=== PATIENT | female | born 1930 | race Caucasian/White ===

== ENCOUNTER 2016-06-19 12:03 | Observation (INO) | payer MEDICARE ==
[2016-06-19] MEDS ORDERED: SODIUM CHLORIDE 0.9% 500 ML IV STA (12:23)
[2016-06-19] MEDS ORDERED: MORPHINE SULFATE 4 MG/ML SYRINGE IV STA (12:23)
[2016-06-19] MEDS ORDERED: SODIUM CHLORIDE 0.9% 1,000 ML IV STA (12:23)
--- NOTE | 2016-06-19 12:43 | ED ---
General Adult HPI - General Chief complaint: Fall Stated complaint: Fall Time Seen by Provider: 06/19/16 12:05 Source: EMS, RN notes reviewed, old records reviewed Mode of arrival: EMS Limitations: no limitations - History of Present Illness Initial comments: This is a 85-year-old female ER for reevaluation. Patient is brought here after being found down. Patient recently just discharged from this institution after hospital admission. Patient is currently on single living, family came over to see patient was she was allegro. Patient states she did fall, per EMS patient was found on the ground with multiple skin abrasions and complaining of left shoulder pain and right shoulder pain left forearm pain and left rib pain. Patient denies loss of consciousness, but she is unsure of how long she was down. Denies being on blood thinners at this time. - Related Data Home Medications Medication Instructions Recorded Confirmed Calcium 1,000 mg PO HS 04/16/16 06/19/16 Atorvastatin [Lipitor] 40 mg PO HS 06/19/16 06/19/16 Fluticasone/Vilanterol [Breo 1 inhalation PO RT-DAILY 06/19/16 06/19/16 Ellipta 100-25 Mcg Inhaler] Ipratropium-Albuterol Nebulize 3 ml INHALATION RT-QID PRN 06/19/16 06/19/16 [Duoneb 0.5 mg-3 mg/3 ml Soln] Loratadine [Claritin] 10 mg PO DAILY 06/19/16 06/19/16 Sertraline HCl [Zoloft] 25 mg PO HS 06/19/16 06/19/16 Previous Rx's Medication Instructions Recorded predniSONE 5 mg PO DAILY #0 10/05/15 Aspirin 81 mg PO DAILY 30 Days 04/22/16 Carvedilol [Coreg] 3.125 mg PO BID-W/MEALS 30 Days 04/22/16 Clopidogrel [Plavix] 75 mg PO DAILY 30 Days 04/22/16 Furosemide [Lasix] 20 mg PO DAILY 30 Days 04/22/16 Lisinopril [Zestril] 2.5 mg PO DAILY 30 Days 04/22/16 Spironolactone [Aldactone] 25 mg PO DAILY 30 Days 04/22/16 Cephalexin [Keflex] 500 mg PO Q8HR #30 cap 06/19/16 Allergies Allergy/AdvReac Type Severity Reaction Status Date / Time No Known Allergies Allergy Verified 06/19/16 12:41 Review of Systems ROS Statement: Those systems with pertinent positive or pertinent negative responses have been documented in the HPI. ROS Other: All systems not noted in ROS Statement are negative. Past Medical History Past Medical History: COPD, Eye Disorder, Hypertension, Musculoskeletal Disorder , Osteoarthritis (OA) Additional Past Medical History / Comment(s): Takastsubo syndrome (broken heart syndrome) x 3, Rt leg wound from knee to ankle tx in wound center and healed- due to injuries with a fall, hairline Fx R hip, COPD , DJD, R shoulder hairline fx, UTI recent, urinary incontinence, L eye cataract, History of Any Multi-Drug Resistant Organisms: None Reported Past Surgical History: Bowel Resection, Hysterectomy, Orthopedic Surgery Additional Past Surgical History / Comment(s): L rotator cuff shoulder surgery, bowel surgery including a colectomy and colostomy with subsequent reversal and the underlying pathology was a benign lesion than malignancy, skin cancer removal recently from R upper arm and several other spots, colonoscopy-normal, debridements R leg wounds. Past Anesthesia/Blood Transfusion Reactions: Previous Problems w/ Anesthesia Additional Past Anesthesia/Blood Transfusion Reaction / Comment(s): "cannot have general anesthesia r/t heart problems" per daughter Past Psychological History: No Psychological Hx Reported Additional Psychological History / Comment(s): Pt resides at [facility]. She uses a walker if she is going outside. She no longer drives- her taiwo takes her places and assists her whenever needed. Smoking Status: Former smoker Past Alcohol Use History: Rare Additional Past Alcohol Use History / Comment(s): Pt started smoking in 1952 and quit in 2012 Past Drug Use History: None Reported - Past Family History Mother Family Medical History: Coronary Artery Disease (CAD), Diabetes Mellitus Additional Family Medical History / Comment(s): Mother at age 66 of heart problem. Father Family Medical History: Myocardial Infarction ([place]), Prostate Disorder Additional Family Medical History / Comment(s): Father at age 86 yrs. General Exam Limitations: no limitations General appearance: alert, in no apparent distress Head exam: Present: atraumatic, normocephalic, normal inspection Eye exam: Present: normal appearance, PERRL, EOMI. Absent: scleral icterus, conjunctival injection, periorbital swelling ENT exam: Present: normal exam, mucous membranes moist Neck exam: Present: normal inspection. Absent: tenderness, meningismus, lymphadenopathy Respiratory exam: Present: normal lung sounds bilaterally. Absent: respiratory distress, wheezes, rales, rhonchi, stridor Cardiovascular Exam: Present: regular rate, normal rhythm, normal heart sounds. Absent: systolic murmur, diastolic murmur, rubs, gallop, clicks GI/Abdominal exam: Present: soft, normal bowel sounds. Absent: distended, tenderness, guarding, rebound, rigid Extremities exam: Present: normal inspection, full ROM, normal capillary refill. Absent: tenderness, pedal edema, joint swelling, calf tenderness Back exam: Present: normal inspection Neurological exam: Present: alert, oriented X3, CN II-XII intact Psychiatric exam: Present: normal affect, normal mood Skin exam: Present: warm, dry, intact, normal color. Absent: rash Course Vital Signs 06/19/16 06/19/16 06/19/16 12:23 15:09 15:22 Temperature 97.1 F L Pulse Rate 97 97 97 Respiratory 17 Rate Blood Pressure 101/59 O2 Sat by Pulse 94 L Oximetry 06/19/16 15:49 Temperature 98.1 F Pulse Rate 70 Respiratory 16 Rate Blood Pressure 109/74 O2 Sat by Pulse 98 Oximetry EKG Findings - EKG Comments: EKG Findings:: EKG shows normal sinus rhythm rate of 95, HI 182, QRS 64, QTc 442 Medical Decision Making - Medical Decision Making 85 female to ER year status post fall, patient had a significant fall at home,. Sustained multiple skin tears, patient also having significant shortness of breath with cough congestion and severe COPD exacerbation - Lab Data Result diagrams: 06/19/16 13:50 06/19/16 13:35 Lab Results 06/19/16 06/19/16 06/19/16 Range/Units 13:35 13:35 13:39 WBC (3.8-10.6) k/uL RBC (3.80-5.40) m/uL Hgb (11.4-16.0) gm/dL Hct (34.0-46.0) % MCV (80.0-100.0) fL MCH (25.0-35.0) pg MCHC (31.0-37.0) g/dL RDW (11.5-15.5) % Plt Count (150-450) k/uL Neutrophils % % Lymphocytes % % Monocytes % % Eosinophils % % Basophils % % Neutrophils # (1.3-7.7) k/uL Lymphocytes # (1.0-4.8) k/uL Monocytes # (0-1.0) k/uL Eosinophils # (0-0.7) k/uL Basophils # (0-0.2) k/uL Hypochromasia Anisocytosis PT 10.5 (9.0-12.0) sec INR 1.0 (<1.1) APTT 18.1 L (22.0-30.0) sec Sodium 137 (137-145) mmol/L Potassium 4.9 (3.5-5.1) mmol/L Chloride 103 (98-107) mmol/L Carbon Dioxide 25 (22-30) mmol/L Anion Gap 9 mmol/L BUN 19 H (7-17) mg/dL Creatinine 0.93 (0.52-1.04) mg/dL Est GFR (MDRD) Af Amer >60 (>60 ml/min/1.73 sqM) Est GFR (MDRD) Non-Af 57 (>60 ml/min/1.73 sqM) Glucose 108 H (74-99) mg/dL Calcium 8.7 (8.4-10.2) mg/dL Phosphorus 3.5 (2.5-4.5) mg/dL Magnesium 1.9 (1.6-2.3) mg/dL Total Bilirubin 0.9 (0.2-1.3) mg/dL AST 44 H (14-36) U/L ALT 40 (9-52) U/L Alkaline Phosphatase 51 (38-126) U/L Total Creatine Kinase 412 H (30-135) U/L CK-MB (CK-2) 7.0 H* (0.0-2.4) ng/mL CK-MB (CK-2) Rel Index 1.7 Troponin I <0.012 (0.000-0.034) ng/mL Total Protein 5.1 L (6.3-8.2) g/dL Albumin 2.6 L (3.5-5.0) g/dL 06/19/16 Range/Units 13:50 WBC 15.1 H (3.8-10.6) k/uL RBC 2.75 L (3.80-5.40) m/uL Hgb 8.5 L D (11.4-16.0) gm/dL Hct 26.4 L (34.0-46.0) % MCV 96.0 D (80.0-100.0) fL MCH 30.8 (25.0-35.0) pg MCHC 32.1 (31.0-37.0) g/dL RDW 16.1 H (11.5-15.5) % Plt Count 391 (150-450) k/uL Neutrophils % 77 % Lymphocytes % 12 % Monocytes % 7 % Eosinophils % 3 % Basophils % 0 % Neutrophils # 11.6 H (1.3-7.7) k/uL Lymphocytes # 1.8 (1.0-4.8) k/uL Monocytes # 1.0 (0-1.0) k/uL Eosinophils # 0.4 (0-0.7) k/uL Basophils # 0.0 (0-0.2) k/uL Hypochromasia Slight Anisocytosis Slight PT (9.0-12.0) sec INR (<1.1) APTT (22.0-30.0) sec Sodium (137-145) mmol/L Potassium (3.5-5.1) mmol/L Chloride (98-107) mmol/L Carbon Dioxide (22-30) mmol/L Anion Gap mmol/L BUN (7-17) mg/dL Creatinine (0.52-1.04) mg/dL Est GFR (MDRD) Af Amer (>60 ml/min/1.73 sqM) Est GFR (MDRD) Non-Af (>60 ml/min/1.73 sqM) Glucose (74-99) mg/dL Calcium (8.4-10.2) mg/dL Phosphorus (2.5-4.5) mg/dL Magnesium (1.6-2.3) mg/dL Total Bilirubin (0.2-1.3) mg/dL AST (14-36) U/L ALT (9-52) U/L Alkaline Phosphatase (38-126) U/L Total Creatine Kinase (30-135) U/L CK-MB (CK-2) (0.0-2.4) ng/mL CK-MB (CK-2) Rel Index Troponin I (0.000-0.034) ng/mL Total Protein (6.3-8.2) g/dL Albumin (3.5-5.0) g/dL - Radiology Data Radiology results: report reviewed (Chest x-ray pelvis x-ray x-ray of bilateral shoulder elbow rest and bilateral knee are negative for traumatic injury), image reviewed Disposition Clinical Impression: Fall, Extensive tearing away of skin, COPD (chronic obstructive pulmonary disease), Acute bronchitis, Noninfected skin tear of leg, Finger abrasion Disposition: ADMITTED IP TO THIS HOSP Condition: Good Instructions: Skin Tear (ED), Fall Prevention for Older Adults (ED) Prescriptions: Cephalexin [Keflex] 500 mg PO Q8HR #30 cap Referrals: Lesia Harper III, MD [Primary Care Provider] - 1-2 days
[2016-06-19 14:04] LABS: Creatine Kinase 412 U/L (30-135)
[2016-06-19 14:15] LABS: Anisocytosis Slight; Basophils % (A) 0 %; CH 30.4; CHCM 31.8; Eosinophils # (A) 0.4 k/uL (0-0.7); Eosinophils % (A) 3 %; HCT 26.4 % (34.0-46.0); HDW 2.73; Hypochromasia Slight; Luc # (Auto) 0.25; Luc % (Auto) 2; Lymphocytes # (A) 1.8 k/uL (1.0-4.8); Lymphocytes % (A) 12 %; MCH 30.8 pg (25.0-35.0); MCHC 32.1 g/dL (31.0-37.0); Mean Platelet Volume 6.7; Monocytes % (A) 7 %; Neutrophils # (A) 11.6 k/uL (1.3-7.7); Neutrophils % (A) 77 %; RBC 2.75 m/uL (3.80-5.40); RDW 16.1 % (11.5-15.5); WBC 15.1 k/uL (3.8-10.6); WBC (Perox) 15.46
[2016-06-19 14:17] LABS: Troponin I <0.012 ng/mL (0.000-0.034)
[2016-06-19 14:18] LABS: Anion Gap 9 mmol/L; Calcium 8.7 mg/dL (8.4-10.2); Carbon Dioxide 25 mmol/L (22-30); Chloride 103 mmol/L (98-107); Glucose 108 mg/dL (74-99); Non-African American GFR(MDRD) 57 (>60 ml/min/1.73 sqM); Sodium 137 mmol/L (137-145); Total Bilirubin 0.9 mg/dL (0.2-1.3); Total Protein 5.1 g/dL (6.3-8.2)
[2016-06-19 14:20] LABS: Prothrombin Time 10.5 sec (9.0-12.0)
[2016-06-19 14:21] LABS: HGB 8.5 gm/dL (11.4-16.0)
--- NOTE | 2016-06-19 14:27 | CT ---
EXAMINATION TYPE: CT brain cspine wo con DATE OF EXAM: 06/19/2016 2:16 PM COMPARISON: 01/12/2015 HISTORY: fall today with injury CT DLP: 1382.9 mGycm Automated exposure control for dose reduction was used. TECHNIQUE: CT scan of the head and cervical spine are performed without contrast. FINDINGS: There is no acute intracranial hemorrhage, mass effect, or midline shift identified. The ventricles and sulci are consistent with moderate degenerative change.. Changes of mild chronic sinu sitis. Periventricular abnormal attenuation is suggestive of remote microvascular ischemia. Cervical spine is visualized in its entirety from C1 through upper thoracic levels and demonstrates s atisfactory alignment without evidence of acute fracture or dislocation. Prevertebral soft tissue ap pears within normal limits. The C1-C2 articulation is unremarkable. Severe degenerative disc disease C3-C7 with posterior spondylosis. Uncovertebral joint hypertrophy an d facet arthropathy at these levels with area of focal sclerosis involving C7. Bone island more likel y than malignancy. There is a 1.1 cm right thyroid nodule. Biapical pleural-based thickening and calcification noted. IMPRESSION: 1. There is no acute fracture or dislocation evident in the cervical spine. 2. No acute intracranial hemorrhage, mass effect, or midline shift is seen. 3. Severe degenerative disc disease and facet arthropathy with foraminal encroachment at virtually al l levels. Canal stenosis is suspected at C5-C6. 4. Sclerotic change to the C7 vertebral body is nonspecific consider follow-up bone scan as discussed above. 5. 1 cm right thyroid nodule. 6. Biapical pleural-based thickening. Correlate for asbestosis related disease.
[2016-06-19 14:35] LABS: Blood Urea Nitrogen 19 mg/dL (7-17); Potassium 4.9 mmol/L (3.5-5.1)
[2016-06-19 14:36] LABS: AST 44 U/L (14-36); Phosphorous 3.5 mg/dL (2.5-4.5)
[2016-06-19 14:37] LABS: ALT 40 U/L (9-52); Alkaline Phosphatase 51 U/L (38-126); Magnesium 1.9 mg/dL (1.6-2.3)
[2016-06-19 14:38] LABS: Partial Thromboplastin Time 18.1 sec (22.0-30.0)
[2016-06-19] MEDS ORDERED: IPRATROPIUM-ALBUTEROL 3 ML NEB INHALATION STA ×2 (14:53→16:38)
[2016-06-19] MEDS ORDERED: HYDROcodone/APAP 5-325MG 1 EACH TAB PO STA (15:40)
[2016-06-19] MEDS ORDERED: CEPHALEXIN 500 MG CAP PO STA (16:46)
--- NOTE | 2016-06-19 17:03 | XR ---
EXAMINATION TYPE: XR chest 1V DATE OF EXAM: 06/19/2016 4:56 PM COMPARISON: Prior chest x-ray March HISTORY: Pain, fall TECHNIQUE: Single frontal view of the chest is obtained. FINDINGS: Patient is rotated. The interstitium is increased. There is an underlying scoliosis. Posto p changes noted to the proximal left humerus. Bone mineralization is reduced which may limit sensitiv ity. No evident pneumothorax or pleural effusion. Cardiac mediastinal silhouette, pulmonary vasculari ty and starr are stable. Suspect some mixed airspace disease is present. IMPRESSION: Correlate for possible congestive heart failure, pneumonia not excluded. Additional find ings above. Follow-up is recommended.
--- NOTE | 2016-06-19 17:05 | XR ---
Bilateral shoulders HISTORY: Trauma and pain 3 views of each shoulder submitted on a total of 6 images The right shoulder is high riding. Bone mineralization is reduced which could limit sensitivity. Post op change noted to the proximal left humerus. Biapical pleural thickening is noted. Bilateral arthrop athy present, the distal acromion is downturned. IMPRESSION: No acute fracture or dislocation is evident. There may be chronic rotator cuff tear
[2016-06-19] MEDS ORDERED: HYDROcodone/APAP 5-325MG 1 EACH TAB PO PRN (17:06)
[2016-06-19] MEDS ORDERED: predniSONE 20 MG TAB PO STA (17:06)
--- NOTE | 2016-06-19 17:07 | XR ---
EXAMINATION TYPE: XR knee complete bilateral DATE OF EXAM: 06/19/2016 4:56 PM COMPARISON: NONE HISTORY: Pain FINDINGS: Diffuse osteopenia noted with narrowing of the joint spaces bilaterally and evidence of chondrocalcin osis. Vascular calcification seen. Osseous structures are intact. No acute fracture seen. IMPRESSION: 1. No acute fracture or dislocation. 2. Severe osteoarthritis bilaterally.
--- NOTE | 2016-06-19 17:07 | XR ---
EXAMINATION TYPE: XR pelvis AP view DATE OF EXAM: 06/19/2016 4:56 PM COMPARISON: NONE HISTORY: Pain The osseous structures are intact and the joint spaces are preserved. No acute fracture is seen. Vi sualized bowel gas pattern is nonspecific. Vascular calcifications arthropathy of the hip noted with diffuse osteopenia. Greater trochanter region is limited by technique. Degenerative change lower lum bar spine. IMPRESSION: 1. No acute fracture.
--- NOTE | 2016-06-19 17:07 | XR ---
Bilateral elbows HISTORY: Trauma and pain 3 views of each elbow submitted. No comparisons Suspect there may be calcification at the origins of the flexor and extensor tendons. Bone mineraliza tion is reduced, alignment is maintained. No evident joint effusion. Lucency present within the soft tissues of the left upper extremity. IMPRESSION: Correlate for possible soft tissue infection, cellulitis, abscess not excluded.
--- NOTE | 2016-06-19 17:09 | XR ---
Bilateral wrists HISTORY: Bruising, trauma and pain 4 views of each wrist are submitted on a total of 8 images Chondrocalcinosis is present. Bone mineralization is reduced which may limit sensitivity. There is re modeling at the radiocarpal joint bilaterally. IMPRESSION: Correlate for crystal deposition arthropathy. No acute fracture or dislocation is evident , follow-up as indicated.
[2016-06-19] MEDS: IPRATROPIUM-ALBUTEROL 3 ML NEB INHALATION SCH (20:01)
[2016-06-19] MEDS ORDERED: IPRATROPIUM-ALBUTEROL 3 ML NEB INHALATION PRN (22:56)
[2016-06-19] MEDS ORDERED: ZOLPIDEM 5 MG TAB PO PRN (23:11)
[2016-06-20] MEDS ORDERED: CARVEDILOL 3.125 MG TAB PO SCH (07:30)
[2016-06-20 08:04] VITALS: RESP 16
[2016-06-20 08:14] LABS: Glucose,Whole Blood 146 mg/dL (75-99)
[2016-06-20 08:36] LABS: Hemoglobin A1C 5.4 % (4.2-6.1)
[2016-06-20] MEDS: INSULIN LISPRO (humaLOG) 300 UNIT/3 ML VIAL SQ SCH ×2 (08:50→13:22)
[2016-06-20] MEDS ORDERED: predniSONE 20 MG TAB PO SCH (09:00)
[2016-06-20] MEDS: IPRATROPIUM-ALBUTEROL 3 ML NEB INHALATION SCH ×3 (09:09→15:55)
[2016-06-20 11:31] LABS: Glucose,Whole Blood 149 mg/dL (75-99)
[2016-06-20 13:45] VITALS: BMI 17.2
[2016-06-20] MEDS ORDERED: FUROSEMIDE 10 MG/ML 4 ML VIAL IV STA (14:26)
[2016-06-20 15:43] VITALS: BP 81/46; TEMP 98.6
[2016-06-20 16:01] VITALS: PULSE 84
--- NOTE | 2016-06-20 17:45 | HP ---
DATE OF ADMISSION: Patient is an 85-year-old female who came in after a fall. Patient was recently discharged from subacute rehabilitation, after which patient went home. Patient did not lose consciousness. Patient denied any shortness of breath, orthopnea or PND, although she has a bit of pulmonary edema on the chest x-ray. I will go ahead and give her a dose of Lasix. Patient denied any fever or chills. I will also increase the dose of Lasix to 40 mg daily with repeat electrolytes in 3 days and followup closely with primary care physician. Patient has multiple skin breakdowns, for which patient will need local wound care. Patient is an ideal candidate for subacute rehab, although patient finished all her rehab days. Unfortunately, because of that reason, I am not able to send her to subacute rehab. Patient denied any fever or chills. Patient denied any nausea, vomiting, abdominal pain. Patient does have leukocytosis secondary to fall and reactive, without any signs or symptoms of sepsis at this point of time. Patient had multiple imaging studies, including elbow x-ray, hand and wrist x-ray, chest x-ray, head and spinal CT, knee x-ray, pelvic x-ray, shoulder x-ray. None of these imaging studies revealed any fractures, but patient has multiple skin breakdowns. Patient has very fragile, thin and elderly skin. Patient will need good local wound care, in spite of which patient's wounds are hard to heal. To help her with the wound healing, I will go ahead and discontinue the 5 mg of prednisone that the patient is on. Patient does have congestive heart failure. Because her fall and low normal blood pressures, I will temporarily hold off on lisinopril, which can be restarted. I will also change Coreg to metoprolol sustained-release. REVIEW OF SYSTEMS: CONSTITUTIONAL: No fever, no malaise, no fatigue. HEENT: No recent visual problems or hearing problems. Denied any sore throat. CARDIOVASCULAR: No chest pain, orthopnea, PND, no palpitations, no syncope. PULMONARY: No shortness of breath, no cough, no hemoptysis. GASTROINTESTINAL: No diarrhea, no nausea, no vomiting, no abdominal pain. Normoactive bowel sounds. NEUROLOGICAL: No headaches, no weakness, no numbness. HEMATOLOGICAL: Denies any bleeding or petechiae. GENITOURINARY: Denies any burning micturition, frequency, or urgency. MUSCULOSKELETAL/RHEUMATOLOGICAL: As mentioned in HPI. ENDOCRINE: Denies any polyuria or polydipsia. The rest of the 14 point review of systems is negative. Home medications include: 1. Calcium. 2. Atorvastatin. 3. Fluticasone/Vilanterol (Breo Ellipta). 4. Ipratropium albuterol. 5. Loratadine. 6. Sertraline. 7. Prednisone. 8. Aspirin. 9. Coreg. 10. Plavix. 11. Lasix 20 mg orally daily. 12. Lisinopril 2.5 mg p.o. daily. 13. Spironolactone 25 p.o. daily. 14. Cephalexin 500 p.o. q.8 hourly. This was given by ER physician because of her extensive skin breakdowns. I will go ahead and continue cephalexin. Patient is definitely at very high risk for cellulitis, anyways. PHYSICAL EXAMINATION: VITAL SIGNS: Temperature 97.4, pulse of 88, respiratory rate of 16, blood pressure 105/52. Saturating at 98% on 2 L of oxygen by nasal cannula. GENERAL: The patient is alert and oriented x3, not in any acute distress. Well developed, well nourished. HEENT: Pupils are round and equally reacting to light. EOMI. No scleral icterus. No conjunctival pallor. Normocephalic, atraumatic. No pharyngeal erythema. No thyromegaly. CARDIOVASCULAR: S1 and S2 present. No murmurs, rubs, or gallops. PULMONARY: Chest is clear to auscultation, no wheezing or crackles. ABDOMEN: Soft, nontender, nondistended, normoactive bowel sounds. No palpable organomegaly. MUSCULOSKELETAL: No joint swelling or deformity. EXTREMITIES: No cyanosis, clubbing, or pedal edema. NEUROLOGICAL: Gross neurological examination did not reveal any focal deficits. SKIN: As mentioned above, multiple skin breakdowns. Patient does not appear to have cellulitis anywhere. Past medical history is significant for: 1. COPD. 2. Takotsubo syndrome. Her previous ejection fraction was low at around 20%. 3. Coronary artery disease. 4. Rotator cuff shoulder surgery. 5. Bowel surgery. 6. Colectomy with colostomy and reversal. SOCIAL HISTORY: Former smoker. Quit smoking in 2012. Denied any alcohol abuse or any drug abuse. FAMILY HISTORY: Mother had coronary artery disease, diabetes mellitus. Mother at age 66 because of heart problems. Father had myocardial infarction and prostate disorder. LABORATORY DATA: CBC, CMP are abnormal for elevated WBC count of 15,100, hemoglobin of 8.5. Normocytic anemia, probably anemia of chronic disease. CK is minimally elevated secondary to fall. ASSESSMENT AND PLAN: 1. Fall, multiple skin breakdowns. Patient did not have any syncopal episode. Patient had a mechanical fall. Because of the low blood pressures, modification in medications as mentioned above. 2. Congestive heart failure with minimal acute exacerbation, for which I will give her a dose of Lasix and also increase her home Lasix dose. Continue with Aldactone. Patient does have chronic systolic dysfunction. 3. Probably takotsubo syndrome as per the previous echocardiogram. LEON inhibitor will be held temporarily because of her falls and concerns about syncopal episode leading to another fall. 4. Generalized deconditioning. Because of above-mentioned reasons, we will set up home care for her. 5. Chronic obstructive pulmonary disease without any acute exacerbation. 6. Degenerative joint disease. 7. Moderate protein calorie malnutrition. Patient will be discharged today. Please refer to my depart summary for discharge medications. Patient will follow with Dr. Harper in 3 to 5 days. [facility] will follow the patient. Activity as tolerated. Cardiac diet. CHF discharge instructions will be provided. LAWANDA
[2016-06-21] MEDS ORDERED: FUROSEMIDE 20 MG TAB PO SCH (09:00)
[2016-06-21] MEDS ORDERED: SPIRONOLACTONE 25 MG TAB PO SCH (09:00)
== END 2016-06-20 16:21 | disposition home health service (06) ==
LOC: EC 12:03 → 4MS4W 17:06
PROVIDERS: ADMIT Hospitalist; ATTEND Hospitalist
DX: T14.8 Other injury of unspecified body region (principal); W19.XXXA Unspecified fall, initial encounter; J44.1 Chronic obstructive pulmonary disease with (acute) exacerbation; I50.9 Heart failure, unspecified; I25.10 Atherosclerotic heart disease of native coronary artery without angina pectoris; D72.829 Elevated white blood cell count, unspecified; E44.0 Moderate protein-calorie malnutrition; I10 Essential (primary) hypertension; I51.81 Takotsubo syndrome; M19.90 Unspecified osteoarthritis, unspecified site; Z79.82 Long term (current) use of aspirin; Z85.828 Personal history of other malignant neoplasm of skin; Z87.891 Personal history of nicotine dependence; Z79.02 Long term (current) use of antithrombotics/antiplatelets; Z79.51 Long term (current) use of inhaled steroids; Z79.52 Long term (current) use of systemic steroids; Z79.899 Other long term (current) drug therapy; M25.512 Pain in left shoulder; M25.511 Pain in right shoulder; M79.632 Pain in left forearm; Z91.81 History of falling; M17.0 Bilateral primary osteoarthritis of knee; M50.30 Other cervical disc degeneration, unspecified cervical region
CPT/HCPCS: 36415; 94640 ×4; 93005; 80053; 83036; 82550; 82553; 83735; 84100; 84484; 85025; 85610; 85730; 71010; 73562; 73110; 73030; 73080; 72170; 72125; 70450; 99285; G0378 ×2; J1940; J7512 ×2; 96374

== ENCOUNTER 2016-06-22 12:45 | Inpatient (IN) | payer MEDICARE ==
--- NOTE | 2016-06-22 14:09 | ED ---
General Adult HPI - General Chief complaint: Shortness of Breath Stated complaint: ASHLEY Time Seen by Provider: 06/22/16 13:05 Source: patient, family, EMS, RN notes reviewed, old records reviewed Mode of arrival: ambulatory Limitations: no limitations - History of Present Illness Initial comments: Chief complaint history of present illness an 85-year-old female who is here because she short of breath. And falls. Patient was in and out of hospitals last week several times. Recently discharged from nursing facility after spending 3 months there. The patient does have some minimal comes in every 2 hours check on her. She has multiple ecchymotic areas of her lower extremities multiple skin tears from previous falls. Patient also has COPD is on home O2. Denying chest pain - Related Data Home Medications Medication Instructions Recorded Confirmed Calcium 1,000 mg PO HS 04/16/16 06/22/16 Atorvastatin [Lipitor] 40 mg PO HS 06/19/16 06/22/16 Fluticasone/Vilanterol [Breo 1 puff INHALATION RT-DAILY 06/19/16 06/22/16 Ellipta 100-25 Mcg Inhaler] Ipratropium-Albuterol Nebulize 3 ml INHALATION RT-QID PRN 06/19/16 06/22/16 [Duoneb 0.5 mg-3 mg/3 ml Soln] Loratadine [Claritin] 10 mg PO DAILY 06/19/16 06/22/16 Sertraline HCl [Zoloft] 25 mg PO HS 06/19/16 06/22/16 Previous Rx's Medication Instructions Recorded Aspirin 81 mg PO DAILY 30 Days 04/22/16 Clopidogrel [Plavix] 75 mg PO DAILY 30 Days 04/22/16 Spironolactone [Aldactone] 25 mg PO DAILY 30 Days 04/22/16 Cephalexin [Keflex] 500 mg PO Q8HR #30 cap 06/20/16 Furosemide [Lasix] 40 mg PO DAILY #30 tab 06/20/16 Metoprolol Succinate [Toprol XL] 25 mg PO DAILY #30 tab 06/20/16 Allergies Allergy/AdvReac Type Severity Reaction Status Date / Time No Known Allergies Allergy Verified 06/22/16 13:42 Review of Systems ROS Statement: Those systems with pertinent positive or pertinent negative responses have been documented in the HPI. Review of systems patient is dyspneic reports that she's been distinction is discharged from hospital. Denying any chest pain or visual acuity changes. She fell apparently last week in her bathroom resulting in skin tears multiple areas of her body. Just rolling in bed with bandages on causes skin tears. Her visiting nurse sent her in because of shortness of breath. No apparent nausea vomiting or complaints of abdominal pain or chest pain. Old chart reviewed recent chart significant for history is of COPD, heart disease with a 20% ejection fraction, rotator cuff surgery, bowel surgery, CHF, colectomy with reversal of colostomy. Patient's former smoker quitting 3 years ago. Family history mother had heart disease, diabetes, father had heart attack and prostate problems. ROS Other: All systems not noted in ROS Statement are negative. Past Medical History Past Medical History: Cancer, COPD, Eye Disorder, Hypertension, Myocardial Infarction (ME), Musculoskeletal Disorder, Osteoarthritis (OA) Additional Past Medical History / Comment(s): Takotsubo syndrome (broken heart syndrome) CARDIOMYOPATHY, Rt leg wound from knee to ankle tx in wound center and healed- due to injuries with a fall, hairline Fx R hip, COPD , DJD, R shoulder hairline fx, UTI recent, urinary incontinence, L eye cataract, skin tears,incont of urine,uti,skin ca Last Myocardial Infarction Date:: 04/16/16 History of Any Multi-Drug Resistant Organisms: None Reported Past Surgical History: Bowel Resection, Heart Catheterization, Hysterectomy, Orthopedic Surgery Additional Past Surgical History / Comment(s): L rotator cuff shoulder surgery, bowel surgery including a colectomy and colostomy with subsequent reversal and the underlying pathology was a benign lesion than malignancy, skin cancer removal recently from R upper arm and several other spots, colonoscopy-normal, debridements R leg wounds. Past Anesthesia/Blood Transfusion Reactions: Previous Problems w/ Anesthesia Additional Past Anesthesia/Blood Transfusion Reaction / Comment(s): "cannot have general anesthesia r/t heart problems" per daughter Past Psychological History: No Psychological Hx Reported Additional Psychological History / Comment(s): Pt resides at [facility]. She uses a walker if she is going outside. She no longer drives- her taiwo takes her places and assists her whenever needed. Smoking Status: Former smoker Past Alcohol Use History: Rare Additional Past Alcohol Use History / Comment(s): Pt started smoking in 1952 and quit in 2012 Past Drug Use History: None Reported - Past Family History Mother Family Medical History: Coronary Artery Disease (CAD), Diabetes Mellitus Additional Family Medical History / Comment(s): Mother at age 66 of heart problem. Father Family Medical History: Myocardial Infarction (ME), Prostate Disorder Additional Family Medical History / Comment(s): Father at age 86 yrs. General Exam - General Exam Comments Initial Comments: General: The patient is awake and alert, she is cachectic, 92 pounds. Temp 97.0 pulse 92 respiratory rate 28 which slowed down after being placed in bed. Pressure 157/60. Pulse ox 99% on 4 L. Eye: Pupils are equal, round and reactive to light, extra-ocular movements are intact ; there is normal conjunctiva bilaterally. No signs of icterus. Ears, nose, mouth and throat: There are moist mucous membranes and no oral lesions. Neck: The neck is supple, there is no tenderness . Cardiovascular: The heart rate 92 no murmurs appreciated. Respiratory: Rare rales at the bases. No wheezing. But she is short of breath. History of COPD. Gastrointestinal: Soft, non-distended, non-tender abdomen without masses or organomegaly noted. There is no rebound or guarding present. No CVA tenderness. Bowel sounds are unremarkable. Back: Chronic back pain Musculoskeletal: Cachectic. Able to move upper and lower extremities. Neurological: CN II-XII intact, answering questions appropriately. No gross abnormalities. Skin: Multiple, entire limbs of ecchymosis due to bruising and falling skin tears bandages on upper or lower extremities Limitations: no limitations Course Vital Signs 06/22/16 06/22/16 06/22/16 12:52 15:02 15:42 Temperature 97.0 F L Pulse Rate 92 107 H Respiratory 28 H 18 Rate Blood Pressure 157/60 O2 Sat by Pulse 99 Oximetry EKG Findings - EKG Comments: EKG Findings:: EKG was done and reviewed at 1309 showing normal sinus rhythm nonspecific changes no acute ST elevation appreciated. Rate 93 AR interval is 170 QRS [address] Fletcher Medical Decision Making - Medical Decision Making Medical decision making patient white count 14.6 hemoglobin 7.5 hematocrit 23.8 , glucose 109, INR 1.0, potassium 4.3. Her BUN is 22 creatinine 1 GFR 53. Troponin 0.014. BNP 813 There is a 1 g drop in hemoglobin compared to last week Chest x-ray was done and reviewed by radiologist his impression is the lungs are clear and there is no pneumothorax, pleural effusion, or focal pneumonia. Hyperinflation suggest COPD. Diffuse osteopenia noted. Postsurgical changes left shoulder. Atherosclerotic change aorta. Degenerative changes of the spine compression deformities thoracic junction likely chronic. Impression no acute process. As read by Dr. valadez The case discussed Dr. gamble patient will be admitted his service. - Lab Data Result diagrams: 06/22/16 14:35 06/22/16 14:35 Lab Results 06/22/16 06/22/16 06/22/16 Range/Units 14:35 14:35 14:35 WBC 14.6 H (3.8-10.6) k/uL RBC 2.46 L (3.80-5.40) m/uL Hgb 7.5 L (11.4-16.0) gm/dL Hct 23.8 L (34.0-46.0) % MCV 96.8 (80.0-100.0) fL MCH 30.5 (25.0-35.0) pg MCHC 31.5 (31.0-37.0) g/dL RDW 16.8 H (11.5-15.5) % Plt Count 430 (150-450) k/uL Neutrophils % 83 % Lymphocytes % 9 % Monocytes % 6 % Eosinophils % 1 % Basophils % 0 % Neutrophils # 12.1 H (1.3-7.7) k/uL Lymphocytes # 1.4 (1.0-4.8) k/uL Monocytes # 0.9 (0-1.0) k/uL Eosinophils # 0.1 (0-0.7) k/uL Basophils # 0.0 (0-0.2) k/uL Hypochromasia Slight Anisocytosis Slight Macrocytosis Slight PT (9.0-12.0) sec INR (<1.1) APTT (22.0-30.0) sec Sodium 144 (137-145) mmol/L Potassium 4.3 (3.5-5.1) mmol/L Chloride 105 (98-107) mmol/L Carbon Dioxide 29 (22-30) mmol/L Anion Gap 10 mmol/L BUN 27 H (7-17) mg/dL Creatinine 1.00 (0.52-1.04) mg/dL Est GFR (MDRD) Af Amer >60 (>60 ml/min/1.73 sqM) Est GFR (MDRD) Non-Af 53 (>60 ml/min/1.73 sqM) Glucose 109 H (74-99) mg/dL Calcium 9.1 (8.4-10.2) mg/dL Magnesium 2.0 (1.6-2.3) mg/dL Total Bilirubin 0.9 (0.2-1.3) mg/dL AST 49 H (14-36) U/L ALT 43 (9-52) U/L Alkaline Phosphatase 59 (38-126) U/L Total Creatine Kinase 267 H (30-135) U/L CK-MB (CK-2) 1.7 (0.0-2.4) ng/mL CK-MB (CK-2) Rel Index 0.6 Troponin I 0.014 (0.000-0.034) ng/mL NT-Pro-B Natriuret Pep pg/mL Total Protein 5.5 L (6.3-8.2) g/dL Albumin 3.0 L (3.5-5.0) g/dL 06/22/16 06/22/16 Range/Units 14:35 14:35 WBC (3.8-10.6) k/uL RBC (3.80-5.40) m/uL Hgb (11.4-16.0) gm/dL Hct (34.0-46.0) % MCV (80.0-100.0) fL MCH (25.0-35.0) pg MCHC (31.0-37.0) g/dL RDW (11.5-15.5) % Plt Count (150-450) k/uL Neutrophils % % Lymphocytes % % Monocytes % % Eosinophils % % Basophils % % Neutrophils # (1.3-7.7) k/uL Lymphocytes # (1.0-4.8) k/uL Monocytes # (0-1.0) k/uL Eosinophils # (0-0.7) k/uL Basophils # (0-0.2) k/uL Hypochromasia Anisocytosis Macrocytosis PT 10.2 (9.0-12.0) sec INR 1.0 (<1.1) APTT 19.5 L (22.0-30.0) sec Sodium (137-145) mmol/L Potassium (3.5-5.1) mmol/L Chloride (98-107) mmol/L Carbon Dioxide (22-30) mmol/L Anion Gap mmol/L BUN (7-17) mg/dL Creatinine (0.52-1.04) mg/dL Est GFR (MDRD) Af Amer (>60 ml/min/1.73 sqM) Est GFR (MDRD) Non-Af (>60 ml/min/1.73 sqM) Glucose (74-99) mg/dL Calcium (8.4-10.2) mg/dL Magnesium (1.6-2.3) mg/dL Total Bilirubin (0.2-1.3) mg/dL AST (14-36) U/L ALT (9-52) U/L Alkaline Phosphatase (38-126) U/L Total Creatine Kinase (30-135) U/L CK-MB (CK-2) (0.0-2.4) ng/mL CK-MB (CK-2) Rel Index Troponin I (0.000-0.034) ng/mL NT-Pro-B Natriuret Pep 853 pg/mL Total Protein (6.3-8.2) g/dL Albumin (3.5-5.0) g/dL Disposition Clinical Impression: COPD exacerbation, Weakness generalized, Fall at home Disposition: ADMITTED IP TO THIS HOSP Condition: Poor
[2016-06-22 14:52] LABS: Anisocytosis Slight; Basophils % (A) 0 %; CH 30.3; CHCM 31.6; Eosinophils # (A) 0.1 k/uL (0-0.7); Eosinophils % (A) 1 %; HCT 23.8 % (34.0-46.0); HDW 2.93; HGB 7.5 gm/dL (11.4-16.0); Hypochromasia Slight; Luc # (Auto) 0.21; Luc % (Auto) 1; Lymphocytes # (A) 1.4 k/uL (1.0-4.8); Lymphocytes % (A) 9 %; MCH 30.5 pg (25.0-35.0); MCHC 31.5 g/dL (31.0-37.0); MCV 96.8 fL (80.0-100.0); Macrocytosis Slight; Mean Platelet Volume 6.6; Monocytes # (A) 0.9 k/uL (0-1.0); Monocytes % (A) 6 %; Neutrophils # (A) 12.1 k/uL (1.3-7.7); Neutrophils % (A) 83 %; RBC 2.46 m/uL (3.80-5.40); RDW 16.8 % (11.5-15.5); WBC 14.6 k/uL (3.8-10.6); WBC (Perox) 15.53
--- NOTE | 2016-06-22 14:53 | XR ---
EXAMINATION TYPE: XR chest 2V DATE OF EXAM: 06/22/2016 2:49 PM COMPARISON: 04/18/2016 HISTORY: Cough FINDINGS: The lungs are clear and there is no pneumothorax, pleural effusion, or focal pneumonia. Hyperinflat ion suggests COPD. Diffuse osteopenia noted. Postsurgical change left shoulder. Atherosclerotic cartagena e aorta. Degenerative change of the spine. Compression deformity thoracolumbar junction likely chroni c. IMPRESSION: 1. No acute process.
[2016-06-22 15:03] LABS: ALT 43 U/L (9-52); AST 49 U/L (14-36); Alkaline Phosphatase 59 U/L (38-126); Anion Gap 10 mmol/L; Blood Urea Nitrogen 27 mg/dL (7-17); Calcium 9.1 mg/dL (8.4-10.2); Carbon Dioxide 29 mmol/L (22-30); Chloride 105 mmol/L (98-107); Glucose 109 mg/dL (74-99); Non-African American GFR(MDRD) 53 (>60 ml/min/1.73 sqM); Potassium 4.3 mmol/L (3.5-5.1); Sodium 144 mmol/L (137-145); Total Bilirubin 0.9 mg/dL (0.2-1.3); Total Protein 5.5 g/dL (6.3-8.2)
[2016-06-22 15:16] LABS: Prothrombin Time 10.2 sec (9.0-12.0)
[2016-06-22 15:26] LABS: Partial Thromboplastin Time 19.5 sec (22.0-30.0)
[2016-06-22 15:31] LABS: Creatine Kinase MB 1.7 ng/mL (0.0-2.4); Troponin I 0.014 ng/mL (0.000-0.034)
[2016-06-22] MEDS ORDERED: IPRATROPIUM-ALBUTEROL 3 ML NEB INHALATION STA (15:36)
[2016-06-22] MEDS ORDERED: NALOXONE 0.4 MG/ML 1 ML VIAL IV PRN (15:58)
[2016-06-22] MEDS: IPRATROPIUM-ALBUTEROL 3 ML NEB INHALATION SCH ×3 (18:46→19:27)
[2016-06-22] MEDS: SYMBICORT 160-4.5 MCG INHALER INHALATION SCH (19:06)
[2016-06-22] MEDS ORDERED: IPRATROPIUM-ALBUTEROL 3 ML NEB INHALATION PRN (19:10)
[2016-06-22] MEDS: SERTRALINE 25 MG TAB PO SCH (20:23)
[2016-06-22] MEDS: ATORVASTATIN 40 MG TAB PO SCH (20:23)
[2016-06-23] MEDS: CEPHALEXIN 500 MG CAP PO SCH ×4 (00:27→23:11)
[2016-06-23 01:45] LABS: Appearance,Urine Cloudy (Clear); Bacteria,Urine Rare /hpf; Bilirubin,Urine Negative (Negative); Glucose,Urine (UA) Negative (Negative); Ketones,Urine Negative (Negative); Leukocyte Esterase,Urine Large (Negative); Mucus,Urine Rare /hpf; Nitrite,Urine Negative (Negative); PH, Urine 6.5 (5.0-8.0); Particle Count 40381; Protein,Urine Negative (Negative); RBC,Urine 1 /hpf (0-5); Specific Gravity,Urine 1.007 (1.001-1.035); UA Billing (MACRO vs. MICRO) MICRO; Urobilinogen,Urine <2.0 mg/dL (<2.0); WBC,Urine 86 /hpf (0-5)
[2016-06-23 03:09] LABS: Anisocytosis Slight; Basophils % (A) 0 %; CH 30.2; CHCM 30.8; Eosinophils # (A) 0.2 k/uL (0-0.7); Eosinophils % (A) 1 %; HCT 20.9 % (34.0-46.0); HDW 2.83; Hypochromasia Moderate; Luc # (Auto) 0.33; Luc % (Auto) 2; Lymphocytes # (A) 2.2 k/uL (1.0-4.8); Lymphocytes % (A) 16 %; MCHC 30.4 g/dL (31.0-37.0); MCV 98.7 fL (80.0-100.0); Macrocytosis Slight; Mean Platelet Volume 6.4; Monocytes % (A) 7 %; Neutrophils # (A) 10.1 k/uL (1.3-7.7); Neutrophils % (A) 73 %; RBC 2.12 m/uL (3.80-5.40); RDW 16.9 % (11.5-15.5); WBC 13.8 k/uL (3.8-10.6); WBC (Perox) 14.53
[2016-06-23 03:16] LABS: HGB 6.4 gm/dL (11.4-16.0)
[2016-06-23] MEDS ORDERED: SODIUM CHLORIDE 0.9% 500 ML IV ONE (03:23)
[2016-06-23] MEDS: PANTOPRAZOLE 40 MG/10 ML VIAL IV SCH (08:05)
[2016-06-23] MEDS: LORATADINE 10 MG TAB PO SCH (08:05)
[2016-06-23] MEDS: SPIRONOLACTONE 25 MG TAB PO SCH (08:07)
[2016-06-23] MEDS: SYMBICORT 160-4.5 MCG INHALER INHALATION SCH ×2 (09:01→20:48)
[2016-06-23] MEDS: IPRATROPIUM-ALBUTEROL 3 ML NEB INHALATION SCH ×4 (09:01→20:48)
[2016-06-23 10:48] VITALS: BMI 16.8
--- NOTE | 2016-06-23 16:56 | HP ---
DATE OF ADMISSION: CHIEF COMPLAINT: Shortness of breath. HISTORY OF PRESENT ILLNESS: Ms. Mcgowan is an 85-year-old female with a past medical history of hypertension, myocardial infarction, takotsubo syndrome, history of recurrent falls coming to the hospital with a chief complaint of difficulty in breathing. The patient was recently discharged from the hospital. She lives all alone at her house but will be visited by somebody every 2 hours so the patient was having difficulty in breathing and when she tried to get out of the bed she had a fall and as she has extremely fragile skin, she started to bleed from the ruptured skin lacerations and after that the patient felt significantly weak and had difficulty in breathing. Patient was very pale when she was brought into the ER. On checking her labs, her hemoglobin was found to be very low at 6.5 and so she was started on blood transfusion and admitted to the hospital for further evaluation. Patient does remember a few things, but is a poor historian so most of the history is given by her daughter who is at the bedside. Her daughter states that her skin is extremely fragile and she has skin abrasions very easily and starts to bleeding. This has been an ongoing issues and the same with her recurrent falls. The patient wishes and she does not want any resuscitation efforts. On talking to the nursing staff, the patient ran out of her days in the [facility] stay so will have to be discharged home. ON REVIEW OF SYSTEMS: CONSTITUTIONAL: No fever, chills, or rigors. RESPIRATORY: Difficulty in breathing. No cough. CARDIAC: No chest pain or palpitations. GI: No abdominal pain, nausea, vomiting, or diarrhea. HEMATOLOGICAL: Patient has a history of easy bruising. No recurrent infections. All 13 review of systems are done and negative except for the ones mentioned in the HPI. Past medical history is significant for COPD, hypertension, myocardial infarction, Takotsubo syndrome, recurrent falls, urinary incontinence, history of skin cancer and easy bruising. PAST SURGICAL HISTORY: Bowel resection, hysterectomy, left shoulder surgery, bowel surgery including colectomy and colostomy with subsequent reversal. PAST PSYCHIATRIC HISTORY: History of anxiety in the past. SOCIAL HISTORY: The patient is at [facility]. She uses a walker and needs 24 x 7 attention and she is a former smoker, quit in 2012. Family history is positive for prostrate cancer and myocardial infarction in her father. ALLERGIES: No known drug allergies. Patient's home medications: 1. Calcium 1000 mg p.o. q.h.s. 2. Aspirin 81 mg p.o. daily. 3. Plavix 75 mg p.o. daily. 4. Spironolactone 25 mg p.o. daily. 5. Zoloft 25 mg p.o. q.h.s. 6. Claritin 10 mg p.o. daily. 7. Flonase p.r.n. 8. Lasix to 40 mg p.o. daily. 9. Keflex 500 mg p.o. q.8 hours. 10. Metoprolol 25 mg p.o. daily. 11. Atorvastatin 40 mg p.o. daily. 12. Breo Ellipta 100/25 one puff 2 times daily. On examination, patient's vital signs: Temperature is 97.2, heart rate 99, respiratory rate 20, blood pressure 105/52, saturating at 98% on 3 L of nasal cannula. GENERAL EXAMINATION: Patient is a thin, fragile, old lady lying in her bed. SKIN: Patient has extremely fragile skin. She has an abrasion on the right upper arm, which is wrapped clear bandage and it has been soaking with blood. EYES: Pupils equal and reactive to light. NECK: No JVD. CARDIAC: S1, S2 heard. LUNGS: Diminished breath sounds in all lung caban. No wheezes or crackles. ABDOMEN: Soft, scaphoid. Bowel sounds positive. EXTREMITIES: Patient has hyperpigmented lesions all over her lower extremities with some bruises, but no active bleeding noticed. SUSTAINABILITY MANAGER: She is alert, awake, oriented x2. No focal deficits. SKIN: Multiple ecchymosis due to bruising and falling and skin tears with bandages on the upper and lower extremities. THE PATIENT'S LABS: White count of 13.8, hemoglobin is 6.4, platelets of 397. Sodium 144, potassium 4.3, chloride 105, bicarb 29, BUN 27, creatinine 1. UA is positive for large leukocyte esterase, but is negative for nitrites and ketones and a few WBCs. ASSESSMENT AND PLAN: 1. Shortness of breath, most likely secondary to acute anemia due to acute blood loss from her recent falls and bruising of her skin. 2. History of chronic obstructive pulmonary disease, severe chronic obstructive pulmonary disease, oxygen dependent. 3. Chronic hypoxic respiratory failure. 4. History of coronary artery disease. 5. Hypertension. 6. History of Takotsubo syndrome. 7. History of recurrent falls. 8. History of ecchymosis and easy bruising of the skin. 9. Thin with body mass index of 16. 10. Chronic debility. 11. NO CODE. PLAN: The plan is to give the patient A blood transfusion, repeat her CBC and then resume her home medications. For now will hold off her blood pressure medications as her blood pressure has been running low. As per the nursing staff, the patient showed much improvement in her mentation after receiving one unit of blood. If the patient remains stable, would anticipate discharge in the next 24 hours. The treatment care plan was discussed with her daughter who is at the bedside in detail. Overall prognosis is guarded and the patient is a NO CODE.
[2016-06-23] MEDS: CALCIUM CARBONATE 500 MG CHEWABLE PO SCH (20:00)
[2016-06-23] MEDS: ATORVASTATIN 40 MG TAB PO SCH (20:01)
[2016-06-23] MEDS: SERTRALINE 25 MG TAB PO SCH (20:01)
[2016-06-24] MEDS: FUROSEMIDE 40 MG TAB PO SCH (08:07)
[2016-06-24] MEDS: PANTOPRAZOLE 40 MG/10 ML VIAL IV SCH (08:07)
[2016-06-24] MEDS: SPIRONOLACTONE 25 MG TAB PO SCH (08:07)
[2016-06-24] MEDS: LORATADINE 10 MG TAB PO SCH (08:07)
[2016-06-24] MEDS: CEPHALEXIN 500 MG CAP PO SCH ×3 (08:07→23:50)
[2016-06-24 08:19] LABS: Anisocytosis Slight; Basophils % (A) 0 %; CH 29.2; CHCM 31.5; Eosinophils # (A) 0.5 k/uL (0-0.7); Eosinophils % (A) 4 %; HCT 22.8 % (34.0-46.0); HDW 3.04; HGB 7.3 gm/dL (11.4-16.0); Hypochromasia Slight; Luc # (Auto) 0.29; Luc % (Auto) 2; Lymphocytes # (A) 1.9 k/uL (1.0-4.8); Lymphocytes % (A) 15 %; MCHC 32.1 g/dL (31.0-37.0); Macrocytosis Slight; Mean Platelet Volume 6.2; Monocytes # (A) 0.9 k/uL (0-1.0); Monocytes % (A) 7 %; Neutrophils # (A) 9.2 k/uL (1.3-7.7); Neutrophils % (A) 72 %; RBC 2.43 m/uL (3.80-5.40); RDW 18.6 % (11.5-15.5); WBC 12.6 k/uL (3.8-10.6); WBC (Perox) 12.71
[2016-06-24 08:22] LABS: MCV 93.6 fL (80.0-100.0)
[2016-06-24] MEDS: IPRATROPIUM-ALBUTEROL 3 ML NEB INHALATION SCH ×4 (08:43→20:36)
[2016-06-24] MEDS: SYMBICORT 160-4.5 MCG INHALER INHALATION SCH ×2 (08:43→20:36)
[2016-06-24] MEDS ORDERED: ASPIRIN 81 MG CHEW PO SCH (09:00)
[2016-06-24] MEDS ORDERED: CLOPIDOGREL 75 MG TAB PO SCH (09:00)
[2016-06-24] MEDS ORDERED: METOPROLOL SUCCINATE (ER) 25 MG TAB.ER.24H PO SCH (09:00)
[2016-06-24] MEDS: IPRATROPIUM-ALBUTEROL 3 ML NEB INHALATION PRN (14:06)
[2016-06-24] MEDS: ACETAMINOPHEN TAB 325 MG TAB PO PRN (16:18)
--- NOTE | 2016-06-24 19:13 | PN ---
INTERVAL HISTORY: Ms. Mcgowan is an 85-year-old female with a past medical history of hypertension, myocardial infarction and takotsubo syndrome. History of recurrent falls, coming into the hospital with a chief complaint of difficulty in breathing. The patient was found to have low hemoglobin at 6.5. She was bleeding from the skin tears that she sustained after having a fall at her home. Patient did receive 1 unit of PRBCs yesterday and her hemoglobin is 7.8 today. As per the nursing staff report, patient has not been making much urine. Overnight she was able to get only 100 mL of output. The patient is a poor historian. She states she does not have any complaints urinating. No hematuria or dysuria. REVIEW OF SYSTEMS: CONSTITUTIONAL: No fevers, chills. RESPIRATORY: No cough. No difficulty in breathing. CARDIAC: No chest pain or palpitations. SKIN: Has some pain in her right upper arm because of the ( ). Patient's medications have been reviewed. She is on Tylenol, [place], DuoNeb, albuterol, Lipitor, Symbicort, calcium carbonate, Keflex, Lasix, Claritin, Narcan, Protonix, Zoloft. On examination, patient's vital signs temperature 98.1, heart rate 94, respiratory rate 20, blood pressure 107/53, saturating at 93% on 4 L of nasal cannula. GENERAL EXAMINATION: Elderly, thin, fragile lady, lying in bed, appears to be in no acute distress. HEAD: Atraumatic, normocephalic, has a lot of wrinkles on her face. EYES: Pupils, round, and reactive to light. NECK: No JVD. CARDIAC: S1, S2 heard. LUNGS: Diminished breath sounds in all lung. No wheezes or crackles. ABDOMEN: Soft, scaphoid. Bowel sounds positive. EXTREMITIES: Hypopigmented lesions. All of her lower extremities with some bruises and ecchymosis. No active bleeding noticed. Examination of her right upper extremity, it is bandage, no signs of active bleeding. FOURTH HAND: She is alert, awake, oriented x2. No focal deficits. Patient's labs: White count of 12.6, hemoglobin is 7.3, platelets of 318. ASSESSMENT AND PLAN: 1. Shortness of breath secondary to acute anemia due to acute blood loss from her recent falls and bruising of her skin. 2. History of chronic obstructive pulmonary disease, oxygen dependent. 3. Chronic hypoxic respiratory failure. 4. History of coronary artery disease. 5. Ecchymosis and easy bruising of the skin. 6. Hypertension. 7. History of takotsubo syndrome. 8. History of recurrent falls. 9. Acute urinary retention. 10. Thin with body mass index of 16. 11. Chronic debility. 12. NO CODE. PLAN: The patient did receive a unit of blood transfusion. Her hemoglobin is stable at 7.3. As the patient has decreased urinary output, will start the patient on IV fluids and have a Gomez catheter in place. Will continue with the rest of her medication regimen. Will have social work program coordinator and clinical case manager on board for placement issues. Overall prognosis is guarded. The patient is a NO CODE. The treatment care plan was discussed in detail with her daughters who at her bedside today.
[2016-06-24] MEDS: CALCIUM CARBONATE 500 MG CHEWABLE PO SCH (22:34)
[2016-06-24] MEDS: ATORVASTATIN 40 MG TAB PO SCH (22:36)
[2016-06-24] MEDS: SERTRALINE 25 MG TAB PO SCH (22:36)
[2016-06-24] MEDS: SODIUM CHLORIDE 0.9% 1,000 ML IV SCH (23:50)
[2016-06-25] MEDS: IPRATROPIUM-ALBUTEROL 3 ML NEB INHALATION SCH ×4 (07:29→20:30)
[2016-06-25] MEDS: SYMBICORT 160-4.5 MCG INHALER INHALATION SCH ×2 (07:29→20:30)
[2016-06-25 08:03] LABS: Anisocytosis Slight; Basophils % (A) 0 %; CH 29.9; CHCM 33.2; Eosinophils # (A) 0.6 k/uL (0-0.7); Eosinophils % (A) 5 %; HCT 21.3 % (34.0-46.0); HDW 3.21; Luc # (Auto) 0.11; Luc % (Auto) 1; Lymphocytes # (A) 1.4 k/uL (1.0-4.8); Lymphocytes % (A) 11 %; MCH 29.3 pg (25.0-35.0); MCHC 32.2 g/dL (31.0-37.0); MCV 90.9 fL (80.0-100.0); Mean Platelet Volume 8.1; Monocytes # (A) 0.8 k/uL (0-1.0); Monocytes % (A) 7 %; Neutrophils # (A) 9.5 k/uL (1.3-7.7); Neutrophils % (A) 77 %; RBC 2.34 m/uL (3.80-5.40); RDW 18.5 % (11.5-15.5); WBC 12.3 k/uL (3.8-10.6); WBC (Perox) 12.38
[2016-06-25 08:06] LABS: HGB 6.9 gm/dL (11.4-16.0)
[2016-06-25 08:55] LABS: Anion Gap 6 mmol/L; Blood Urea Nitrogen 23 mg/dL (7-17); Calcium 7.5 mg/dL (8.4-10.2); Carbon Dioxide 24 mmol/L (22-30); Chloride 108 mmol/L (98-107); Glucose 81 mg/dL (74-99); Non-African American GFR(MDRD) >60 (>60 ml/min/1.73 sqM); Potassium 4.1 mmol/L (3.5-5.1); Sodium 138 mmol/L (137-145)
[2016-06-25] MEDS: LORATADINE 10 MG TAB PO SCH (10:54)
[2016-06-25] MEDS: FUROSEMIDE 40 MG TAB PO SCH (10:54)
[2016-06-25] MEDS: SPIRONOLACTONE 25 MG TAB PO SCH (10:54)
[2016-06-25] MEDS: PANTOPRAZOLE 40 MG/10 ML VIAL IV SCH (10:54)
[2016-06-25] MEDS: CEPHALEXIN 500 MG CAP PO SCH ×3 (10:54→23:25)
[2016-06-25] MEDS: ACETAMINOPHEN TAB 325 MG TAB PO PRN (22:17)
[2016-06-25] MEDS: ATORVASTATIN 40 MG TAB PO SCH (22:18)
[2016-06-25] MEDS: CALCIUM CARBONATE 500 MG CHEWABLE PO SCH (22:18)
[2016-06-25] MEDS: SODIUM CHLORIDE 0.9% 1,000 ML IV SCH (22:18)
[2016-06-25] MEDS: SERTRALINE 25 MG TAB PO SCH (22:18)
[2016-06-26] MEDS: IPRATROPIUM-ALBUTEROL 3 ML NEB INHALATION PRN (01:14)
--- NOTE | 2016-06-26 08:06 | PN ---
Ms. Mcgowan is an 85-year-old female with a past medical history positive for HI, takotsubo syndrome, recurrent falls coming into the hospital with a chief complaint of difficulty in breathing. The patient was found to have low hemoglobin at 6.5. The patient was bleeding from the skin tears that she sustained after having a fall at her house. Patient received 2 units of PRBC until and her hemoglobin has been lingering around 10. The patient also was having urinary retention for which we have been straight cathing her. She has almost 200 to 300 mL of residual. Patient is a poor historian and she does not have any active complaints. REVIEW OF SYSTEMS: CONSTITUTIONAL: She denies having any fevers, chills. RESPIRATORY: No cough, no difficulty in breathing. CARDIAC: NO chest pain, no palpitations. The patient patient's medications have been reviewed. On examination, patient's vital signs temperature 99.7, heart rate 106, respiratory rate 20, blood pressure 92/47, saturating at 95%. GENERAL APPEARANCE: Elderly, thin, fragile lady lying in bed, appears to be in no acute distress. HEAD: Atraumatic, normocephalic. The patient has a lot of pimples on her face. Pupils round and reactive. NECK: No JVD. CARDIOVASCULAR: S1, S2 heard. LUNGS: Diminished breath sounds in all lung caban. No wheezes or crackles. ABDOMEN: Soft, scaphoid, bowel sounds positive. EXTREMITIES: The patient has hyperpigmented lesions all over her lower extremities and skin tears all over her upper extremities. The one on the right arm is bandage. No signs of active bleeding. GENERAL PRODUCTION LABORER: She is alert, awake, oriented x2. No focal deficits. Patient's labs: White count of 12.3, hemoglobin is 6.9, platelets 313. Sodium 138, potassium 4.1, chloride 108, bicarb 23, BUN 23, creatinine 0.82. ASSESSMENT AND PLAN: 1. Shortness of breath secondary to acute anemia due to blood loss from her recent falls and skin tears. 2. History of chronic obstructive pulmonary disease, oxygen dependent. 3. Chronic hypoxic respiratory failure. 4. Urinary retention. 5. History of coronary artery disease. 6. Ecchymosis and easy bruising of the skin. 7. Hypertension. 8. History of takotsubo syndrome. 9. History of recurrent falls. 10. Recent history of urinary tract infection. 11. Thin build with BMI of 16. 12. Chronic debility. 13. NO CODE. PLAN: The patient did receive 2 units of PRBCs and until now hemoglobin has been stable. She is not actively bleeding. Will continue the Gomez catheter as she has been retaining a lot of urine. Will continue with the current medication regimen. line up worker and immigration case worker on board for placement issues. As the patient ran out of her [facility] days and they are trying to find a place for her to go. Overall prognosis is guarded. Patient is a NO CODE.
[2016-06-26] MEDS: CEPHALEXIN 500 MG CAP PO SCH ×3 (08:17→23:20)
[2016-06-26] MEDS: FUROSEMIDE 40 MG TAB PO SCH (08:17)
[2016-06-26] MEDS: PANTOPRAZOLE 40 MG/10 ML VIAL IV SCH (08:17)
[2016-06-26] MEDS: LORATADINE 10 MG TAB PO SCH (08:17)
[2016-06-26] MEDS: SPIRONOLACTONE 25 MG TAB PO SCH (08:17)
[2016-06-26] MEDS: SYMBICORT 160-4.5 MCG INHALER INHALATION SCH ×2 (08:19→18:23)
[2016-06-26] MEDS: IPRATROPIUM-ALBUTEROL 3 ML NEB INHALATION SCH ×4 (08:19→18:23)
[2016-06-26 12:03] LABS: Anisocytosis Slight; Basophils % (A) 0 %; CH 30.2; CHCM 33.6; Eosinophils # (A) 0.5 k/uL (0-0.7); Eosinophils % (A) 4 %; HCT 27.2 % (34.0-46.0); HDW 3.56; Luc # (Auto) 0.13; Luc % (Auto) 1; Lymphocytes # (A) 1.2 k/uL (1.0-4.8); Lymphocytes % (A) 9 %; MCH 29.2 pg (25.0-35.0); MCHC 32.2 g/dL (31.0-37.0); MCV 90.7 fL (80.0-100.0); Mean Platelet Volume 8.5; Monocytes % (A) 8 %; Neutrophils # (A) 10.2 k/uL (1.3-7.7); Neutrophils % (A) 78 %; Poikilocytosis Slight; RDW 17.4 % (11.5-15.5); WBC (Perox) 12.94
[2016-06-26 12:04] LABS: HGB 8.7 gm/dL (11.4-16.0)
--- NOTE | 2016-06-26 14:08 | CDI ---
In responding to this query, please exercise your independent professional judgment. The [facility] Coding Staff and Clinical Documentation Specialists appreciate your assistance in clarifying documentation, maintaining compliance with coding guidelines, accurately documenting patients condition and capturing severity of illness. The fact that a question is asked does not imply that any particular answer is desired or expected. Communication forms are a method of clarifying documentation and are not made part of the Legal Health Record. Thank you in advance for your clarification. Last Revision, March 2015 Yajaira Avina [address] [place] [address] Documentation Clarification Form Date: 06/26/2016 1:41:00 PM From: Kristin Ramirez Admit Date: 06/22/2016 3:58:00 PM Patient Name: Allison Mcgowan Visit Number: [id number] Discharge Date: Dr. Maggie Lacy Cachectic has been documented in the ER evaluation. History/Risk Factors: COPD, hypertension, Takotsubo syndrome, Former smoker, Clinical Indicators: Fall at home with skin laceration and after that the patient felt significantly weak and ad difficulty in breathing. The patient was very pale. She uses a walker and need 24x7 attention. She has extremely fragile skin. Labs: Albumin 3.0, Total Protein 5.5 Current BMI: 16.8 Insufficient energy intake: She has difficulty chewing, poor appetite Weight Loss: Patient unsure of how much weight lost and over what time period. Treatment: Dietary Consult: Yes Supplements: Commercial beverage, Ensure TID Lab monitoring: Monitor weight In your professional opinion, can you please clarify if these findings signify one of the following conditions? Mild Protein Malnutrition Mild Protein-Calorie Malnutrition Moderate Protein Malnutrition Moderate Protein-Calorie Malnutrition Severe Protein Malnutrition Severe Protein-Calorie Malnutrition Malnutrition following GI surgery Malnutrition Other condition, please specify Unable to determine Please document in your progress notes and discharge summary in order to capture severity of illness and risk of mortality. Include clinical findings that support your diagnosis. FYI: Press F11 to launch patient chart. Place X here if this finding has no clinical significance, is not applicable or if you are not able to provide any additional documentation. MTDD
[2016-06-26] MEDS: SERTRALINE 25 MG TAB PO SCH (20:46)
[2016-06-26] MEDS: SODIUM CHLORIDE 0.9% 1,000 ML IV SCH (20:46)
[2016-06-26] MEDS: ATORVASTATIN 40 MG TAB PO SCH (20:46)
[2016-06-26] MEDS: CALCIUM CARBONATE 500 MG CHEWABLE PO SCH (20:46)
[2016-06-27] MEDS: CEPHALEXIN 500 MG CAP PO SCH ×3 (08:05→23:15)
[2016-06-27] MEDS: PANTOPRAZOLE 40 MG TABLET PO SCH (08:05)
[2016-06-27] MEDS: LORATADINE 10 MG TAB PO SCH (08:05)
[2016-06-27] MEDS: FUROSEMIDE 40 MG TAB PO SCH (08:05)
[2016-06-27] MEDS: SPIRONOLACTONE 25 MG TAB PO SCH (08:05)
--- NOTE | 2016-06-27 08:11 | PN ---
DATE OF SERVICE: 06/26/2016 INTERVAL HISTORY: Ms. Mcgowan is an 85-year-old female with a past medical history of positive for PR, takotsubo syndrome, recurrent falls, admitted to the hospital with the chief complaint of difficulty in breathing. Patient was also found to have low hemoglobin at 6.5. The patient has multiple skin tears due to fragile skin and she also sustained a fall at her house. Patient received 2 units of PRBC until today and her hemoglobin has been stable. Patient was having urinary retention for which a Gomez catheter has been placed and will give a trial of void without the Gomez today. Patient is a poor historian. She does not have much complaints. She states that she wants to go home. REVIEW OF SYSTEMS: CONSTITUTIONAL: No fevers, chills. RESPIRATORY: States that breathing is getting better. CARDIAC: No chest pain or palpitations. The patient's medications have been reviewed. On examination, patient's vital signs, temperature 99.5, heart rate between 90 to 110, respiratory rate 20, blood pressure 135/59, saturating at 99% on 3 L of nasal cannula. GENERAL EXAMINATION: Patient is an elderly, thin fragile lady, lying in bed, appears to be in no acute distress. HEAD: Atraumatic, normocephalic. Patient has locked pupils are round, and reactive. NECK: No JVD. CARDIOVASCULAR: S1, S2 with diminished breath sounds in all lung caban. No wheeze or crackles. ABDOMEN: Soft, nontender. Bowel sounds positive. EXTREMITIES: Patient has hyperpigmented lesions all over her lower extremities. Patient has multiple skin tears in her upper extremities, the largest one being on the right upper extremity with no significant active bleeding. LEGAL SUPPORT SPECIALIST: She is alert, awake, oriented x2, no focal deficits. PATIENT'S LABS: White count of 13, hemoglobin 8.7, platelets 324, sodium 133, potassium 4.9, chloride 108, bicarb 24, BUN 23, creatinine 0.82. ASSESSMENT AND PLAN: 1. Shortness of breath secondary to acute anemia due to gastrointestinal loss from her recent fall from skin. 2. History of chronic obstructive pulmonary disease, oxygen-dependent. 3. Chronic hypoxic respiratory failure. 4. Urinary retention. 5. History of coronary artery disease. 6. Ecchymosis and easy bruising of the skin. 7. Hypertension. 8. History of takotsubo syndrome. 9. History of recurrent falls. 10. History of protein calorie malnutrition, severe. 11. Thin build with a BMI of 16. 12. Chronic debility. 13. NO CODE. PLAN: The plan is to continue the patient with the current medication regimen. I will discontinue the Gomez catheter and see if the patient is still urinating. The ( ) straight cath. Cosmetologist Apprentice and Sales Vice President on board for placement issues as the patient ran out of usp days as per her insurance. Overall prognosis is guarded. Patient is a NO CODE and patient's family member are aware of the treatment plan.
[2016-06-27] MEDS: IPRATROPIUM-ALBUTEROL 3 ML NEB INHALATION SCH ×4 (08:16→20:46)
[2016-06-27] MEDS: SYMBICORT 160-4.5 MCG INHALER INHALATION SCH ×2 (08:16→20:46)
--- NOTE | 2016-06-27 10:51 | XR ---
EXAMINATION TYPE: XR chest 1V portable DATE OF EXAM: 06/27/2016 10:37 AM COMPARISON: 06/22/2016 HISTORY: Shortness of breath TECHNIQUE: Single frontal view of the chest is obtained. FINDINGS: Bilateral infiltrate and small effusion noted. Atherosclerotic change aorta. Postsurgical change left shoulder with diffuse osteopenia. Interstitium prominent. IMPRESSION: 1. Bilateral infiltrate and small effusion. 2. COPD with increased interstitial relative to the previous exam correlate for mild venous congestio n or interstitial pneumonitis.
[2016-06-27] MEDS ORDERED: FUROSEMIDE 10 MG/ML 4 ML VIAL IV STA (11:58)
--- NOTE | 2016-06-27 13:48 | PN ---
Patient is an 85-year-old fragile female who is admitted secondary to it was believed anemia is causing her shortness of breath and patient continues to complain of some shortness of breath because at which time I am obtaining a chest x-ray and patient's hemoglobin is 8.7 after transfusion. At this point of time, patient is very fragile, will need placement and patient appears to have some malnutrition, which is probably moderate. REVIEW OF SYSTEMS: CARDIOVASCULAR: No chest pain, no orthopnea, no PND, no palpitations. PULMONARY: As described above. GASTROINTESTINAL: No diarrhea, nausea or vomiting. No abdominal pain. Normoactive bowel sounds. NEUROLOGIC: No headaches, no weakness, no numbness. Medications were reviewed. PHYSICAL EXAMINATION: Temperature 97.8, pulse of 96, respiratory rate of 20, blood pressure is 120/72, saturating at 99% on 3 L of O2 by nasal cannula. Patient does use 2 to 3 L at home. PHYSICAL EXAMINATION: GENERAL: The patient is alert and oriented x3, not in any acute distress. Well developed, well nourished. HEENT: Pupils are round and equally reacting to light. EOMI. No scleral icterus. No conjunctival pallor. Normocephalic, atraumatic. No pharyngeal erythema. No thyromegaly. CARDIOVASCULAR: S1 and S2 present. No murmurs, rubs, or gallops. PULMONARY: Chest is clear to auscultation, no wheezing or crackles. ABDOMEN: Soft, nontender, nondistended, normoactive bowel sounds. No palpable organomegaly. MUSCULOSKELETAL: No joint swelling or deformity. EXTREMITIES: No cyanosis, clubbing, or pedal edema. NEUROLOGICAL: Gross neurological examination did not reveal any focal deficits. DERMATOLOGIC: Patient has very fragile skin, skin breakdowns in multiple areas. LABORATORY DATA: Patient continues to have leukocytosis. I am not exactly sure of why she has leukocytosis. Patient does not have any cellulitis. Patient is on Keflex empirically and prophylactically because of her multiple skin breakdowns. ASSESSMENT AND PLAN: 1. Shortness of breath secondary to anemia and due to last blood loss through the skin. Because of her fall, patient has multiple skin breakdowns and blood loss secondary to that. 2. Chronic obstructive pulmonary disease, oxygen-dependent. 3. Chronic hypercapnic respiratory failure secondary to chronic obstructive pulmonary disease without any acute exacerbation at this point of time. Because of her continued complaints of shortness of breath, I will go ahead and obtain a chest x-ray. 4. Urinary retention for which patient has a Gomez catheter. Patient will need outpatient followup with Urology. 5. Ecchymosis, bruising and skin breakdown after a fall. 6. History of takotsubo. I do not have any repeat echocardiogram. 7. Moderate severe protein calorie malnutrition with body mass index of 16. 8. Chronic debility. CODE STATUS: DO NOT RESUSCITATE. Will obtain a chest x-ray. Will keep her here today. I did get the chest x-ray results at this point of time, which is showing increased pulmonary edema. We are unable to put in another IV line. Will try to give her IV Lasix. If not, I will give her an additional dose of oral Lasix. Repeat electrolytes tomorrow.
[2016-06-27] MEDS: CALCIUM CARBONATE 500 MG CHEWABLE PO SCH (20:41)
[2016-06-27] MEDS: SERTRALINE 25 MG TAB PO SCH (20:41)
[2016-06-27] MEDS: ATORVASTATIN 40 MG TAB PO SCH (20:41)
[2016-06-27] MEDS: DOCUSATE 100 MG CAP PO PRN (21:44)
[2016-06-27] MEDS: SODIUM CHLORIDE 0.9% 1,000 ML IV SCH (23:45)
[2016-06-28] MEDS: LORATADINE 10 MG TAB PO SCH (08:10)
[2016-06-28] MEDS: SPIRONOLACTONE 25 MG TAB PO SCH (08:10)
[2016-06-28] MEDS: CEPHALEXIN 500 MG CAP PO SCH ×2 (08:10→16:29)
[2016-06-28] MEDS: PANTOPRAZOLE 40 MG TABLET PO SCH (08:10)
--- NOTE | 2016-06-28 09:04 | XR ---
EXAMINATION TYPE: XR chest 1V DATE OF EXAM: 06/28/2016 7:37 AM COMPARISON: 06/27/2016 HISTORY: Shortness of breath TECHNIQUE: Single frontal view of the chest is obtained. FINDINGS: Bilateral infiltrate and small effusion noted. Atherosclerotic change aorta. Postsurgical change left shoulder with diffuse osteopenia. Interstitium prominent. Curvature of the spine with degenerative disc disease noted. IMPRESSION: 1. Bilateral infiltrate and small effusion. 2. COPD with increased interstitial relative to the previous exam correlate for mild venous congestio n or interstitial pneumonitis.
[2016-06-28 10:40] LABS: Anion Gap 10 mmol/L; Blood Urea Nitrogen 11 mg/dL (7-17); Calcium 8.2 mg/dL (8.4-10.2); Carbon Dioxide 23 mmol/L (22-30); Chloride 103 mmol/L (98-107); Glucose 86 mg/dL (74-99); Non-African American GFR(MDRD) >60 (>60 ml/min/1.73 sqM); Potassium 4.1 mmol/L (3.5-5.1); Sodium 136 mmol/L (137-145)
[2016-06-28] MEDS: FUROSEMIDE 40 MG TAB PO SCH (11:03)
[2016-06-28] MEDS: IPRATROPIUM-ALBUTEROL 3 ML NEB INHALATION SCH ×4 (11:30→19:59)
[2016-06-28] MEDS: SYMBICORT 160-4.5 MCG INHALER INHALATION SCH ×2 (11:34→19:59)
[2016-06-28] MEDS: METOPROLOL SUCCINATE (ER) 25 MG TAB.ER.24H PO SCH (11:55)
[2016-06-28 13:59] LABS: Anisocytosis Slight; CH 29.4; CHCM 31.7; HCT 28.3 % (34.0-46.0); HDW 3.22; HGB 9.2 gm/dL (11.4-16.0); Hypochromasia Slight; MCH 30.2 pg (25.0-35.0); MCHC 32.3 g/dL (31.0-37.0); MCV 93.5 fL (80.0-100.0); Mean Platelet Volume 6.8; RBC 3.03 m/uL (3.80-5.40); RDW 16.7 % (11.5-15.5)
--- NOTE | 2016-06-28 14:29 | PN ---
Patient is an 85-year-old female admitted with shortness of breath secondary to what is believed to be anemia. Patient's shortness of breath improved and patient has pulmonary edema, which improved today. Patient does have some chronic condition changes, chronic venous congestion changes on the x-ray today. Although patient became tachycardic today, I will obtain an EKG and continue with oral Lasix and check her kidney function. REVIEW OF SYSTEMS: CARDIOVASCULAR: No chest pain, no orthopnea, no PND, no palpitations. PULMONARY: Denied any shortness of breath. No cough or hemoptysis. GASTROINTESTINAL: No diarrhea, nausea or vomiting. No abdominal pain. Normoactive bowel sounds. NEUROLOGIC: No headaches, no weakness, no numbness. Medications are reviewed. PHYSICAL EXAMINATION: Temperature 97.6, pulse of 112, respiratory rate of 16, blood pressure 99/51, saturating at 99% on room air. CARDIOVASCULAR: S1 and S2 present. Patient is tachycardic. I believe is sinus tachycardia. No rubs, or gallops are appreciated. Did not appreciate any JVD at this point of time. No pedal edema. GENERAL: The patient is alert and oriented x3, not in any acute distress. Well developed, well nourished. HEENT: Pupils are round and equally reacting to light. EOMI. No scleral icterus. No conjunctival pallor. Normocephalic, atraumatic. No pharyngeal erythema. No thyromegaly. PULMONARY: Chest is clear to auscultation, no wheezing or crackles. ABDOMEN: Soft, nontender, nondistended, normoactive bowel sounds. No palpable organomegaly. MUSCULOSKELETAL: No joint swelling or deformity. EXTREMITIES: No cyanosis, clubbing, or pedal edema. NEUROLOGICAL: Gross neurological examination did not reveal any focal deficits. SKIN: No rashes. LABORATORY DATA: Basic metabolic profile essentially within normal limits. ASSESSMENT AND PLAN: 1. Shortness of breath secondary to anemia. Patient does have acute blood loss from the skin tears. 2. Chronic obstructive pulmonary disease, oxygen dependent, not in acute exacerbation. 3. Chronic hypercapnic respiratory failure secondary to chronic obstructive pulmonary disease , patient is not in acute exacerbation. 4. Congestive heart failure, systolic dysfunction from takotsubo in the past. I do not have a repeat echocardiogram after that and patient improved with IV Lasix. 5. Tachycardia, will obtain an EKG. 6. Moderate to severe protein calorie malnutrition. 7. Chronic debility. If we are able to control her heart rate, patient will be discharged tomorrow and patient appears to be euvolemic fairly for me. Patient appears to be on metoprolol XL, which is being held on this admission, probably that is contributing to her reflex tachycardia.
[2016-06-28] MEDS: SERTRALINE 25 MG TAB PO SCH (21:00)
[2016-06-28] MEDS: ATORVASTATIN 40 MG TAB PO SCH (21:00)
[2016-06-28] MEDS: CALCIUM CARBONATE 500 MG CHEWABLE PO SCH (21:01)
[2016-06-28] MEDS: SODIUM CHLORIDE 0.9% 1,000 ML IV SCH (23:45)
[2016-06-29] MEDS: CEPHALEXIN 500 MG CAP PO SCH ×4 (00:19→23:43)
--- NOTE | 2016-06-29 02:56 | CT ---
EXAMINATION TYPE: CT brain wo con DATE OF EXAM: 06/29/2016 2:45 AM COMPARISON: 06/19/2016 HISTORY: fall, hit head CT DLP: 1162.80 mGycm Automated exposure control for dose reduction was used. FINDINGS: There is diffuse cerebral atrophy. There is extensive hypodensity in the periventricular white matter . There is no mass effect nor midline shift. There is mild mucosal thickening in the sphenoid sinus o n the left side. The calvarium is intact. There is no evidence of intracranial hemorrhage. IMPRESSION: Cerebral atrophy and extensive chronic small vessel ischemia. No acute intracranial abnormality. No c hange. Mild left-sided sphenoid sinusitis.
--- NOTE | 2016-06-29 02:57 | XR ---
EXAMINATION TYPE: XR elbow limited LT DATE OF EXAM: 06/29/2016 2:51 AM COMPARISON: NONE HISTORY: Elbow pain TECHNIQUE: 2 views FINDINGS: I see no fracture nor dislocation. Joint spaces are normal. There is some soft tissue swell ing around the posterior elbow joint. IMPRESSION: Soft tissue swelling. No fracture seen.
[2016-06-29] MEDS: IPRATROPIUM-ALBUTEROL 3 ML NEB INHALATION SCH ×4 (08:09→19:05)
[2016-06-29] MEDS: SYMBICORT 160-4.5 MCG INHALER INHALATION SCH ×2 (08:20→19:05)
[2016-06-29] MEDS: LORATADINE 10 MG TAB PO SCH (08:55)
[2016-06-29] MEDS: METOPROLOL SUCCINATE (ER) 25 MG TAB.ER.24H PO SCH (08:55)
[2016-06-29] MEDS: SPIRONOLACTONE 25 MG TAB PO SCH (08:56)
[2016-06-29] MEDS: PANTOPRAZOLE 40 MG TABLET PO SCH (08:56)
[2016-06-29] MEDS: FUROSEMIDE 40 MG TAB PO SCH (08:56)
[2016-06-29 08:59] LABS: Anion Gap 9 mmol/L; Blood Urea Nitrogen 14 mg/dL (7-17); Calcium 8.5 mg/dL (8.4-10.2); Carbon Dioxide 24 mmol/L (22-30); Chloride 101 mmol/L (98-107); Glucose 99 mg/dL (74-99); Non-African American GFR(MDRD) >60 (>60 ml/min/1.73 sqM); Potassium 3.7 mmol/L (3.5-5.1); Sodium 134 mmol/L (137-145)
[2016-06-29] MEDS: HYDROcodone/APAP 5-325MG 1 EACH TAB PO PRN (11:13)
--- NOTE | 2016-06-29 12:19 | CDI ---
In responding to this query, please exercise your independent professional judgment. The [facility] Coding Staff and Clinical Documentation Specialists appreciate your assistance in clarifying documentation, maintaining compliance with coding guidelines, accurately documenting patients condition and capturing severity of illness. The fact that a question is asked does not imply that any particular answer is desired or expected. Communication forms are a method of clarifying documentation and are not made part of the Legal Health Record. Thank you in advance for your clarification. Last Revision, July [address] [facility] [place] [address] Documentation Clarification Form Date: 06/29/2016 11:47:00 AM From: Kristin Ramirez Admit Date: 06/22/2016 3:58:00 PM Patient Name: Allison Mcgowan Visit Number: [id number] Discharge Date: Dr. Maggie Lacy CHF is documented in the progress note on 06/28/16. History/Risk Factors: COPD O2 dependent, Hypertension, Takotsubo syndrome, Clinical Indicators: Admit with shortness of breath secondary to what is believed to be anemia. the patient has pulmonary edema. Lungs: Chest is clear to auscultation, no wheezing or crackles VS/Pulse OX: 94/45 107 22 97.3 95 % 2/L NC BNP: 853 Chest X Ray: 06/28/16: Bilateral infiltrate and small effusion, COPD with increased interstitial relative to the previous exam correlate for mild venous congestive or interstitial pneumonitis. Treatment: IV Lasix x1 (continue PO daily) Albuterol DuoNeb's In your professional opinion, can you please further clarify the acuity of the Systolic CHF if known? Acute Chronic Acute on Chronic Unable to determine Other, please specify If known, please specify if Heart Failure is due to: Hypertension Rheumatic Fever Please document in your progress notes and discharge summary in order to capture severity of illness and risk of mortality. Include clinical findings that support your diagnosis. FYI: Press F11 to launch patient chart. Place X here if this finding has no clinical significance, is not applicable or if you are not able to provide any additional documentation. MTDD
--- NOTE | 2016-06-29 15:14 | PN ---
Patient is an 85-year-old who came in with complaints of shortness of breath which was believed secondary to anemia, but the patient has a component of CHF exacerbation as well, which improved. Patient's blood pressure remains low. Patient was tachycardic, which improved with beta isma at this point of time. Patient had a fall yesterday because of confusion related to hospitalization related to delirium. Patient's prognosis is extremely poor. Patient has had ( ) patient is awaiting disposition to subacute rehabilitation. Patient is actually on the euvolemic to hypovolemic side, because of which I will back off on the Lasix to 40 mg orally daily. REVIEW OF SYSTEMS: CARDIOVASCULAR: No chest pain, no orthopnea, no PND, no palpitations. PULMONARY: Denied any shortness of breath. No cough or hemoptysis. GASTROINTESTINAL: No diarrhea, nausea or vomiting. No abdominal pain. Normoactive bowel sounds. NEUROLOGIC: No headaches, no weakness, no numbness. MUSCULOSKELETAL: Patient had a fall with some skin breakdowns again. Medications were reviewed. PHYSICAL EXAMINATION: VITAL SIGNS: Temperature 97.3, pulse of 96, respiratory rate of 22. Blood pressure is 94/45. Saturating at 95% on 2 L of oxygen by nasal cannula. GENERAL: Patient is a very thin built, frail female. Alert and oriented times around 2 to 3, which is her baseline. HEENT: Pupils are round and equally reacting to light. EOMI. No scleral icterus. No conjunctival pallor. Normocephalic, atraumatic. No pharyngeal erythema. No thyromegaly. CARDIOVASCULAR: S1 and S2 present. Minimal tachycardic, I believe sinus tachycardia. PULMONARY: Chest is clear to auscultation, no wheezing or crackles. ABDOMEN: Soft, nontender, nondistended, normoactive bowel sounds. No palpable organomegaly. MUSCULOSKELETAL: No joint swelling or deformity. EXTREMITIES: No cyanosis, clubbing, or pedal edema. NEUROLOGICAL: Gross neurological examination did not reveal any focal deficits. DERMATOLOGIC: No significant change compared to yesterday. LABORATORY DATA: Basic metabolic profile is abnormal for mildly low sodium of 134 due to intravascular volume depletion. ASSESSMENT AND PLAN: 1. Shortness of breath secondary to anemia, which resolved. 2. Congestive heart failure, chronic systolic dysfunction; ejection fraction is unknown at this point of time. Patient has history of takotsubo with acute exacerbation during this hospitalization, which is better now. Patient is actually on the hypovolemic side at this time. 3. Chronic obstructive pulmonary disease, oxygen-dependent, not in acute exacerbation. 4. Chronic hypercapnic respiratory failure secondary to chronic obstructive pulmonary disease. 5. Moderate to severe protein-calorie malnutrition. 6. Chronic debility. 7. Tachycardia due to mild intravascular volume depletion. 8. Multiple falls. 9. Moderate dementia. PLAN: Patient will be discharged tomorrow to subacute rehabilitation. Patient is definitely at high risk for readmission.
[2016-06-29] MEDS: SERTRALINE 25 MG TAB PO SCH (20:15)
[2016-06-29] MEDS: ATORVASTATIN 40 MG TAB PO SCH (20:15)
[2016-06-29] MEDS: CALCIUM CARBONATE 500 MG CHEWABLE PO SCH (20:15)
[2016-06-29] MEDS: SODIUM CHLORIDE 0.9% 1,000 ML IV SCH (23:44)
[2016-06-30 07:49] LABS: Anisocytosis Slight; CH 28.9; CHCM 30.5; HDW 3.16; HGB 8.8 gm/dL (11.4-16.0); Hypochromasia Marked; MCHC 30.4 g/dL (31.0-37.0); MCV 95.5 fL (80.0-100.0); Mean Platelet Volume 6.2; RBC 3.03 m/uL (3.80-5.40); RDW 16.2 % (11.5-15.5); WBC 8.7 k/uL (3.8-10.6)
[2016-06-30 08:02] LABS: Anion Gap 8 mmol/L; Blood Urea Nitrogen 14 mg/dL (7-17); Calcium 8.3 mg/dL (8.4-10.2); Carbon Dioxide 25 mmol/L (22-30); Chloride 102 mmol/L (98-107); Glucose 85 mg/dL (74-99); Non-African American GFR(MDRD) >60 (>60 ml/min/1.73 sqM); Potassium 3.9 mmol/L (3.5-5.1); Sodium 135 mmol/L (137-145)
[2016-06-30] MEDS: CEPHALEXIN 500 MG CAP PO SCH ×3 (08:30→23:32)
[2016-06-30] MEDS: SYMBICORT 160-4.5 MCG INHALER INHALATION SCH ×2 (08:36→20:44)
[2016-06-30] MEDS: IPRATROPIUM-ALBUTEROL 3 ML NEB INHALATION SCH ×4 (08:36→20:45)
[2016-06-30] MEDS: HYDROcodone/APAP 5-325MG 1 EACH TAB PO PRN (10:07)
[2016-06-30] MEDS: METOPROLOL SUCCINATE (ER) 25 MG TAB.ER.24H PO SCH (10:08)
[2016-06-30] MEDS: FUROSEMIDE 40 MG TAB PO SCH (10:08)
[2016-06-30] MEDS: PANTOPRAZOLE 40 MG TABLET PO SCH (10:08)
[2016-06-30] MEDS: LORATADINE 10 MG TAB PO SCH (10:09)
[2016-06-30] MEDS: CALCIUM CARBONATE 500 MG CHEWABLE PO SCH (20:22)
[2016-06-30] MEDS: ATORVASTATIN 40 MG TAB PO SCH (20:22)
[2016-06-30] MEDS: SERTRALINE 25 MG TAB PO SCH (20:22)
[2016-06-30] MEDS: SODIUM CHLORIDE 0.9% 1,000 ML IV SCH (20:23)
--- NOTE | 2016-06-30 22:13 | DS ---
DATE OF ADMISSION: 06/22/2016 DATE OF DISCHARGE: Patient is an 85-year-old came in with complaints of shortness of breath believed to be secondary to anemia. Patient was also treated for congestive heart failure, chronic systolic dysfunction with acute exacerbation. Patient is clinically doing well and I believe patient can be discharged today although patient is high risk for readmission. Patient we are unable to place her in extended care facility. Patient is more appropriate for correction than an extended-care facility. Family wanted to take her with 24/7 care in an AF home, although I do not believe that is 100% appropriate disposition. We have only limited choices here. Patient has acute blood loss anemia from falls and skin breakdown. Patient is on oxygen at this point of time. Patient was seen and examined on the day of discharge. Vitals are stable. PHYSICAL EXAMINATION: GENERAL: The patient is alert and oriented x3, not in any acute distress. Well developed, well nourished. HEENT: Pupils are round and equally reacting to light. EOMI. No scleral icterus. No conjunctival pallor. Normocephalic, atraumatic. No pharyngeal erythema. No thyromegaly. CARDIOVASCULAR: S1 and S2 present. No murmurs, rubs, or gallops. PULMONARY: Chest is clear to auscultation, no wheezing or crackles. ABDOMEN: Soft, nontender, nondistended, normoactive bowel sounds. No palpable organomegaly. MUSCULOSKELETAL: No joint swelling or deformity. EXTREMITIES: No cyanosis, clubbing, or pedal edema. NEUROLOGICAL: Gross neurological examination did not reveal any focal deficits. Dermatologic: As described in HPI . REVIEW OF SYSTEMS: CARDIOVASCULAR: No chest pain, no orthopnea, no PND, no palpitations. PULMONARY: Denied any shortness of breath. No cough or hemoptysis. GASTROINTESTINAL: No diarrhea, nausea or vomiting. No abdominal pain. Normoactive bowel sounds. NEUROLOGIC: No headaches, no weakness, no numbness. ASSESSMENT AND PLAN: 1. Shortness of breath secondary to anemia, which is again secondary to acute blood loss anemia from skin breakdown. 2. Congestive heart failure, chronic systolic dysfunction with acute exacerbation. 3. Chronic obstructive pulmonary disease oxygen-dependent without any acute exacerbation. 4. Acute chronic hypercapnic respiratory failure secondary to chronic obstructive pulmonary disease. 5. Moderate to severe protein calorie malnutrition. 6. Chronic debility. 7. Multiple falls. 8. Moderate dementia. Patient will need physical therapy at home. Patient will follow with Dr. Jonna Harper in 3 to 7 days. Please refer to my depart summary for further details of discharge medications. Activity as tolerated. Cardiac diet. CHF discharge instructions will be provided. Spent greater than 35 minutes in total discharge process.
[2016-07-01] MEDS: IPRATROPIUM-ALBUTEROL 3 ML NEB INHALATION PRN (00:19)
[2016-07-01] MEDS: IPRATROPIUM-ALBUTEROL 3 ML NEB INHALATION SCH ×4 (07:56→20:53)
[2016-07-01] MEDS: SYMBICORT 160-4.5 MCG INHALER INHALATION SCH ×2 (07:56→20:53)
[2016-07-01] MEDS: CEPHALEXIN 500 MG CAP PO SCH ×2 (08:46→17:12)
[2016-07-01] MEDS: PANTOPRAZOLE 40 MG TABLET PO SCH (08:46)
[2016-07-01] MEDS: METOPROLOL SUCCINATE (ER) 25 MG TAB.ER.24H PO SCH (08:47)
[2016-07-01] MEDS: FUROSEMIDE 40 MG TAB PO SCH (08:47)
[2016-07-01] MEDS: LORATADINE 10 MG TAB PO SCH (08:47)
[2016-07-01] MEDS: DOCUSATE 100 MG CAP PO PRN (10:06)
--- NOTE | 2016-07-01 17:16 | PN ---
Patient is an 85-year-old came in with complaints of shortness of breath believed to be secondary to anemia. Patient was also treated for congestive heart failure, chronic systolic dysfunction with acute exacerbation. Patient is clinically doing well and I believe patient can be discharged today although patient is high risk for readmission. Patient we are unable to place her in extended care facility. Patient is more appropriate for halfway than an extended-care facility. Family wanted to take her with 24/7 care in an AF home, although I do not believe that is 100% appropriate disposition. We have only limited choices here. Patient has acute blood loss anemia from falls and skin breakdown. Patient is on oxygen at this point of time. REVIEW OF SYSTEMS: CARDIOVASCULAR: No chest pain, no orthopnea, no PND, no palpitations. PULMONARY: Denied any shortness of breath. No cough or hemoptysis. GASTROINTESTINAL: No diarrhea, nausea or vomiting. No abdominal pain. Normoactive bowel sounds. NEUROLOGIC: No headaches, no weakness, no numbness. Medications were reviewed. PHYSICAL EXAMINATION: Temperature 97.8, pulse of 99, respiratory rate of 16, blood pressure 99/52, saturating at 98% on 2 L of O2 by nasal cannula. GENERAL: The patient is alert and oriented x3, not in any acute distress. Well developed, well nourished. HEENT: Pupils are round and equally reacting to light. EOMI. No scleral icterus. No conjunctival pallor. Normocephalic, atraumatic. No pharyngeal erythema. No thyromegaly. CARDIOVASCULAR: S1 and S2 present. No murmurs, rubs, or gallops. PULMONARY: Chest is clear to auscultation, no wheezing or crackles. ABDOMEN: Soft, nontender, nondistended, normoactive bowel sounds. No palpable organomegaly. MUSCULOSKELETAL: No joint swelling or deformity. EXTREMITIES: No cyanosis, clubbing, or pedal edema. NEUROLOGICAL: Gross neurological examination did not reveal any focal deficits. Dermatologic: As described in HPI . LABORATORY DATA: CBC, CMP, no significant abnormality. ASSESSMENT AND PLAN: 1. Shortness of breath secondary to anemia, which is again secondary to acute blood loss anemia from skin breakdown. 2. Congestive heart failure, chronic systolic dysfunction with acute exacerbation. 3. Chronic obstructive pulmonary disease oxygen-dependent without any acute exacerbation. 4. Acute chronic hypercapnic respiratory failure secondary to chronic obstructive pulmonary disease. 5. Moderate to severe protein calorie malnutrition. 6. Chronic debility. 7. Multiple falls. PLAN: Continue with present medications. Possibility of discharge tomorrow to subacute rehabilitation.
[2016-07-01] MEDS: SERTRALINE 25 MG TAB PO SCH (22:08)
[2016-07-01] MEDS: ATORVASTATIN 40 MG TAB PO SCH (22:08)
[2016-07-01] MEDS: CALCIUM CARBONATE 500 MG CHEWABLE PO SCH (22:08)
[2016-07-01] MEDS: SODIUM CHLORIDE 0.9% 1,000 ML IV SCH (22:09)
[2016-07-02] MEDS: CEPHALEXIN 500 MG CAP PO SCH ×2 (00:17→08:12)
[2016-07-02 08:07] VITALS: BP 129/55; RESP 19; TEMP 98
[2016-07-02] MEDS: SYMBICORT 160-4.5 MCG INHALER INHALATION SCH (08:10)
[2016-07-02] MEDS: IPRATROPIUM-ALBUTEROL 3 ML NEB INHALATION SCH ×2 (08:10→11:58)
[2016-07-02] MEDS: METOPROLOL SUCCINATE (ER) 25 MG TAB.ER.24H PO SCH (08:12)
[2016-07-02] MEDS: FUROSEMIDE 40 MG TAB PO SCH (08:12)
[2016-07-02] MEDS: LORATADINE 10 MG TAB PO SCH (08:12)
[2016-07-02] MEDS: PANTOPRAZOLE 40 MG TABLET PO SCH (08:12)
[2016-07-02 12:00] VITALS: PULSE 96
--- NOTE | 2016-07-03 10:15 | DS ---
DATE OF ADMISSION: 06/22/2016 DATE OF DISCHARGE: 07/02/2016 Patient is an 85-year-old female admitted with shortness of breath. Patient was discharged a couple of days ago. Patient is awaiting discharge to go to subacute rehabilitation, although her insurance [facility] did not approve her for subacute rehab. The patient is more appropriate for subacute rehab and the patient is high risk for readmission if she goes home. Although unfortunately, nothing much can be done about it as the patient and family cannot pay out of pocket to the rehabilitation because of which patient is being discharged home with home care. Patient apparently has 10/12 care. The patient was seen and examined as patient was not discharged a couple days ago. I did see and evaluate today as well. Patient's vitals are stable. PHYSICAL EXAM: No significant change compared to a couple of days ago. Please refer to my discharge summary from a couple of days ago for further details of discharge. There is no significant change in the last 2 days.
== END 2016-07-02 13:55 | DRG 811 ==
LOC: EC 12:45 → 4MS4W 15:58
PROVIDERS: ADMIT Internal Medicine; ATTEND Internal Medicine
PROC: 30230N1 Transfusion of Nonautologous Red Blood Cells into Peripheral Vein, Open Approach (ICD-10-PCS; principal; 2016-06-23)
DX: D62 Acute posthemorrhagic anemia (principal); E43 Unspecified severe protein-calorie malnutrition; J96.11 Chronic respiratory failure with hypoxia; J96.12 Chronic respiratory failure with hypercapnia; I42.9 Cardiomyopathy, unspecified; I50.22 Chronic systolic (congestive) heart failure; F03.90 Unspecified dementia, unspecified severity, without behavioral disturbance, psychotic disturbance, mood disturbance, and anxiety; E86.1 Hypovolemia; I10 Essential (primary) hypertension; I25.10 Atherosclerotic heart disease of native coronary artery without angina pectoris; I25.2 Old myocardial infarction; F41.9 Anxiety disorder, unspecified; M19.90 Unspecified osteoarthritis, unspecified site; R33.9 Retention of urine, unspecified; R29.6 Repeated falls; Z99.81 Dependence on supplemental oxygen; Z87.891 Personal history of nicotine dependence; Z85.828 Personal history of other malignant neoplasm of skin; Z66 Do not resuscitate; Z68.1 Body mass index [BMI] 19.9 or less, adult; Z79.82 Long term (current) use of aspirin; Z79.02 Long term (current) use of antithrombotics/antiplatelets; Z79.899 Other long term (current) drug therapy
CPT/HCPCS: 36415; 70450; 71010; 71020; 72125; 72170; 80048; 80053; 81001; 82550; 82553; 83036; 83605; 83735; 83880; 84100; 84484; 85025; 85027; 85610; 85730; 86850; 86900; 86901; 86920; 87040; 87502; 93005; 94640; 94760; 99285

== ENCOUNTER 2017-09-04 12:57 | Inpatient (IN) | payer MEDICARE ==
[2017-09-04] MEDS ORDERED: SODIUM CHLORIDE 0.9% 1,000 ML IV ONE (14:27)
[2017-09-04] MEDS ORDERED: SODIUM CHLORIDE 0.9% 500 ML IV ONE (14:27)
[2017-09-04 14:54] LABS: Appearance,Urine Cloudy (Clear); Bacteria,Urine Few /hpf; Bilirubin,Urine Negative (Negative); Blood,Urine Trace (Negative); Color,Urine Light Yellow; Glucose,Urine (UA) Negative (Negative); Ketones,Urine Negative (Negative); Leukocyte Esterase,Urine Large (Negative); Nitrite,Urine Negative (Negative); Protein,Urine Trace (Negative); RBC,Urine 5 /hpf (0-5); Specific Gravity,Urine 1.012 (1.001-1.035); Squamous Epithelial Cell,Urine 2 /hpf (0-4); Urobilinogen,Urine <2.0 mg/dL (<2.0); WBC,Urine >182 /hpf (0-5)
[2017-09-04 15:03] LABS: Basophils % (A) 0 %; Eosinophils # (A) 0.2 k/uL (0-0.7); Eosinophils % (A) 1 %; HCT 24.8 % (34.0-46.0); Hypochromasia Marked; Lymphocytes # (A) 1.9 k/uL (1.0-4.8); Lymphocytes % (A) 14 %; MCH 20.9 pg (25.0-35.0); MCHC 27.9 g/dL (31.0-37.0); MCV 74.8 fL (80.0-100.0); Mean Platelet Volume 6.6; Microcytosis Slight; Monocytes # (A) 0.9 k/uL (0-1.0); Monocytes % (A) 6 %; Neutrophils # (A) 10.6 k/uL (1.3-7.7); Neutrophils % (A) 76 %; Platelet Count 588 k/uL (150-450); Poikilocytosis Slight; RBC 3.31 m/uL (3.80-5.40); RDW 15.8 % (11.5-15.5)
[2017-09-04 15:07] LABS: HGB 6.9 gm/dL (11.4-16.0)
--- NOTE | 2017-09-04 15:07 | XR ---
EXAMINATION TYPE: XR chest 2V DATE OF EXAM: 09/04/2017 COMPARISON: Prior chest 05/11/2017 HISTORY: Altered mental status and shortness of breath TECHNIQUE: Frontal and lateral views of the chest are obtained. FINDINGS: There is no focal air space opacity, pleural effusion, or pneumothorax seen. The cardiac silhouette size is stable, accentuation in the appearance may be due to rotation, spinal curvature. P rominent lung volumes are again noted. The aorta is dense. There is increased retrosternal airspace. There is improvement in visualization of the posterior costophrenic angles compared to prior exam. Po stop changes noted to the proximal left humerus. Patient is rotated. Interstitium is prominent. The o sseous structures are intact. IMPRESSION: Improvement in aeration. Additional findings above.
[2017-09-04 15:13] LABS: Albumin 3.2 g/dL (3.5-5.0); Calcium 9.7 mg/dL (8.4-10.2); Potassium 5.1 mmol/L (3.5-5.1); Total Bilirubin 0.4 mg/dL (0.2-1.3); Total Protein 5.9 g/dL (6.3-8.2)
[2017-09-04 15:24] LABS: Partial Thromboplastin Time 19.2 sec (22.0-30.0)
[2017-09-04 15:38] LABS: Creatine Kinase MB 1.3 ng/mL (0.0-2.4); Troponin I 0.019 ng/mL (0.000-0.034)
[2017-09-04] MEDS ORDERED: cefTRIAXone IN SWFI 1,000 MG/10 ML SYRINGE IVP STA (15:39)
--- NOTE | 2017-09-04 15:53 | ED ---
Altered Mental Status HPI - General Chief Complaint: Altered Mental Status Stated Complaint: med reaction-shaky & altered Time Seen by Provider: 09/04/17 14:09 Source: patient, family Mode of arrival: wheelchair Limitations: altered mental status - History of Present Illness Initial Comments: This 86-year-old white female presents with daughter with the complaint of some increased confusion and imbalance over the last several days. She apparently started a medication of megestrol by Dr. Cotton a bout a week ago and the daughter thinks that the symptoms may be related to this. She stopped the medication yesterday and the patient seems to be somewhat improved. She apparently had a fever a couple of days ago as well. She does have a history of urinary tract infections but denies any current urinary symptomatology. She has had a slight cough but no difficulty in breathing or chest pain. She denies any abdominal pain. The daughter states that the confusion is significantly resolved at this point. She ambulates with a walker today. She does complain of some chronic weakness and fatigue. She denies any blood in her stool or black tarry stools. She does have a history of anemia per old records but she is unsure what type of anemia she has. No other complaints or modifying factors. - Related Data Home Medications Medication Instructions Recorded Confirmed Calcium 1,000 mg PO HS 04/16/16 05/07/17 Atorvastatin [Lipitor] 40 mg PO HS 06/19/16 05/07/17 Ipratropium-Albuterol Nebulize 3 ml INHALATION RT-QID PRN 06/19/16 05/07/17 [Duoneb 0.5 mg-3 mg/3 ml Soln] Loratadine [Claritin] 10 mg PO DAILY 06/19/16 05/07/17 Sertraline HCl [Zoloft] 25 mg PO HS 06/19/16 05/07/17 Budesonide/Formoterol Fumarate 2 puff INHALATION RT-BID 05/07/17 05/07/17 [Symbicort 160-4.5 Mcg Inhaler] Furosemide [Lasix] 20 mg PO DAILY 05/07/17 05/07/17 Montelukast [Singulair] 10 mg PO HS 05/07/17 05/07/17 predniSONE 5 mg PO DAILY 05/07/17 05/07/17 Previous Rx's Medication Instructions Recorded Aspirin 81 mg PO DAILY 30 Days chew 04/22/16 Clopidogrel [Plavix] 75 mg PO DAILY 30 Days tab 04/22/16 Metoprolol Succinate [Toprol XL] 25 mg PO DAILY #30 tab 06/20/16 Ranitidine HCl [Zantac] 150 mg PO BID #60 tab 06/30/16 Cefuroxime Axetil [Ceftin] 500 mg PO BID 10 Days #20 tab 05/12/17 Allergies Allergy/AdvReac Type Severity Reaction Status Date / Time No Known Allergies Allergy Verified 09/04/17 13:40 Review of Systems ROS Statement: Those systems with pertinent positive or pertinent negative responses have been documented in the HPI. ROS Other: All systems not noted in ROS Statement are negative. Past Medical History Past Medical History: Cancer, COPD, Hypertension, Myocardial Infarction (RI), Musculoskeletal Disorder, Osteoarthritis (OA), Respiratory Disorder Additional Past Medical History / Comment(s): Takotsubo syndrome (broken heart syndrome) CARDIOMYOPATHY, home O2 at 3L/NC ATC, Rt leg wound from knee to ankle tx in wound center and healed- due to injuries with a fall, anemia r/t skin breakdown, hairline Fx R hip, DJD, R shoulder hairline fx-healed but ROM less, incont of urine,uti, skin ca, skin tears, bruising/falls Last Myocardial Infarction Date:: 04/16/16 History of Any Multi-Drug Resistant Organisms: None Reported Past Surgical History: Heart Catheterization, Hysterectomy, Orthopedic Surgery Additional Past Surgical History / Comment(s): L rotator cuff shoulder surgery, colonoscopy, skin cancer removals, colonoscopy-normal, debridements R leg wounds , L cataract removal with lens implants. Past Anesthesia/Blood Transfusion Reactions: Previous Problems w/ Anesthesia Additional Past Anesthesia/Blood Transfusion Reaction / Comment(s): "cannot have general anesthesia r/t heart problems" per daughter in past medical hx Past Psychological History: No Psychological Hx Reported Smoking Status: Former smoker - Past Family History Mother Family Medical History: Coronary Artery Disease (CAD), Diabetes Mellitus Additional Family Medical History / Comment(s): Mother at age 66 of heart problem. Father Family Medical History: Myocardial Infarction (RI), Prostate Disorder Additional Family Medical History / Comment(s): Father at age 86 yrs. General Exam - General Exam Comments Initial Comments: GENERAL: The patient is well nourished and well hydrated. VITAL SIGNS: Heart rate, blood pressure, respiratory rate reviewed as recorded in nurse's notes. EYES: Pupils are round and reactive. Extraocular movements are intact. No conjunctival / lid redness or swelling. ENT: No external evidence of injury, swelling, or ecchymosis. Airway is patent. Throat is clear. NECK: Nontender. No swelling or evidence of injury. No subcutaneous emphysema. Trachea is midline. No thyroid mass. HEART: Regular rate and rhythm. Good peripheral pulses. LUNGS/CHEST: Breath sounds clear and equal bilaterally. No rales, rhonchi, or wheezes. No ecchymosis, subcutaneous emphysema, or tenderness. ABDOMEN: Abdomen soft without tenderness. No palpable masses or organomegaly. No peritoneal signs. No abdominal wall swelling or ecchymosis. EXTREMITIES: No extremity tenderness. Normal muscle tone and function. No thoracolumbar tenderness. NEUROLOGIC: Sensation is grossly intact. Cranial nerve exam reveals face is symmetrical, tongue is midline, speech is clear. SKIN: No abrasions or ecchymosis is noted. No induration or masses noted. PSYCHIATRIC: Alert and in no distress. She is not completely oriented. Appropriate behavior and judgment. Limitations: altered mental status Course Vital Signs 09/04/17 09/04/17 13:36 14:05 Temperature 98.6 F Pulse Rate 93 Respiratory 24 20 Rate Blood Pressure 129/58 O2 Sat by Pulse 100 Oximetry Medical Decision Making - Medical Decision Making The patient was seen and examined. All diagnostics were reviewed. The EKG shows a normal sinus rhythm at a rate of 92. There is multiple PVCs noted. There is no ST elevation identified. There is a ME interval of 170, QRS duration of 66, and the QTc interval 445. The chest x-ray does show signs of COPD but no acute processes. The laboratory shows a significantly decreased hemoglobin of 6.9 but it does appear that she does have chronic anemia with last hemoglobin being 8.1. She also has an elevation of her white blood cell count. The urinalysis does show significant evidence of urinary tract infection. It is felt as though her symptoms likely are related to the urinary tract infection. The megesterol may have been playing a role as well. Nevertheless, it is felt as though she benefit from admission to the hospital with further IV antibiotics. The case is discussed with Dr. Tapia and he is agreeable to admission. He is agreeable with the antibiotics and would like one unit of packed red blood cells transfused and Dr. Cotton to consult. - Lab Data Result diagrams: 09/04/17 14:46 09/04/17 14:46 Lab Results 09/04/17 09/04/17 09/04/17 Range/Units 14:30 14:46 14:46 WBC 14.0 H (3.8-10.6) k/uL RBC 3.31 L (3.80-5.40) m/uL Hgb 6.9 L* (11.4-16.0) gm/dL Hct 24.8 L (34.0-46.0) % MCV 74.8 L (80.0-100.0) fL MCH 20.9 L (25.0-35.0) pg MCHC 27.9 L (31.0-37.0) g/dL RDW 15.8 H (11.5-15.5) % Plt Count 588 H (150-450) k/uL Neutrophils % 76 % Lymphocytes % 14 % Monocytes % 6 % Eosinophils % 1 % Basophils % 0 % Neutrophils # 10.6 H (1.3-7.7) k/uL Lymphocytes # 1.9 (1.0-4.8) k/uL Monocytes # 0.9 (0-1.0) k/uL Eosinophils # 0.2 (0-0.7) k/uL Basophils # 0.0 (0-0.2) k/uL Hypochromasia Marked Poikilocytosis Slight Microcytosis Slight PT (9.0-12.0) sec INR (<1.2) APTT (22.0-30.0) sec Sodium (137-145) mmol/L Potassium (3.5-5.1) mmol/L Chloride (98-107) mmol/L Carbon Dioxide (22-30) mmol/L Anion Gap mmol/L BUN (7-17) mg/dL Creatinine (0.52-1.04) mg/dL Est GFR (CKD-EPI)AfAm (>60 ml/min/1.73 sqM) Est GFR (CKD-EPI)NonAf (>60 ml/min/1.73 sqM) Glucose (74-99) mg/dL Calcium (8.4-10.2) mg/dL Total Bilirubin (0.2-1.3) mg/dL AST (14-36) U/L ALT (9-52) U/L Alkaline Phosphatase (38-126) U/L Ammonia (<30) umol/L Total Creatine Kinase 55 (30-135) U/L CK-MB (CK-2) 1.3 (0.0-2.4) ng/mL CK-MB (CK-2) Rel Index 2.4 Troponin I 0.019 (0.000-0.034) ng/mL Total Protein (6.3-8.2) g/dL Albumin (3.5-5.0) g/dL Urine Color Light Yellow Urine Appearance Cloudy H (Clear) Urine pH 7.0 (5.0-8.0) Ur Specific [place] 1.012 (1.001-1.035) Urine Protein Trace H (Negative) Urine Glucose (UA) Negative (Negative) Urine Ketones Negative (Negative) Urine Blood Trace H (Negative) Urine Nitrite Negative (Negative) Urine Bilirubin Negative (Negative) Urine Urobilinogen <2.0 (<2.0) mg/dL Ur Leukocyte Esterase Large H (Negative) Urine RBC 5 (0-5) /hpf Urine WBC >182 H (0-5) /hpf Urine WBC Clumps Many H (None) /hpf Ur Squamous Epith Cells 2 (0-4) /hpf Urine Bacteria Few H (None) /hpf 09/04/17 09/04/17 09/04/17 Range/Units 14:46 14:46 14:46 WBC (3.8-10.6) k/uL RBC (3.80-5.40) m/uL Hgb (11.4-16.0) gm/dL Hct (34.0-46.0) % MCV (80.0-100.0) fL MCH (25.0-35.0) pg MCHC (31.0-37.0) g/dL RDW (11.5-15.5) % Plt Count (150-450) k/uL Neutrophils % % Lymphocytes % % Monocytes % % Eosinophils % % Basophils % % Neutrophils # (1.3-7.7) k/uL Lymphocytes # (1.0-4.8) k/uL Monocytes # (0-1.0) k/uL Eosinophils # (0-0.7) k/uL Basophils # (0-0.2) k/uL Hypochromasia Poikilocytosis Microcytosis PT 10.0 (9.0-12.0) sec INR 1.0 (<1.2) APTT 19.2 L (22.0-30.0) sec Sodium 145 (137-145) mmol/L Potassium 5.1 (3.5-5.1) mmol/L Chloride 108 H (98-107) mmol/L Carbon Dioxide 26 (22-30) mmol/L Anion Gap 11 mmol/L BUN 31 H (7-17) mg/dL Creatinine 1.16 H (0.52-1.04) mg/dL Est GFR (CKD-EPI)AfAm 49 (>60 ml/min/1.73 sqM) Est GFR (CKD-EPI)NonAf 43 (>60 ml/min/1.73 sqM) Glucose 84 (74-99) mg/dL Calcium 9.7 (8.4-10.2) mg/dL Total Bilirubin 0.4 (0.2-1.3) mg/dL AST 22 (14-36) U/L ALT 26 (9-52) U/L Alkaline Phosphatase 72 (38-126) U/L Ammonia <9 (<30) umol/L Total Creatine Kinase (30-135) U/L CK-MB (CK-2) (0.0-2.4) ng/mL CK-MB (CK-2) Rel Index Troponin I (0.000-0.034) ng/mL Total Protein 5.9 L (6.3-8.2) g/dL Albumin 3.2 L (3.5-5.0) g/dL Urine Color Urine Appearance (Clear) Urine pH (5.0-8.0) Ur Specific [place] (1.001-1.035) Urine Protein (Negative) Urine Glucose (UA) (Negative) Urine Ketones (Negative) Urine Blood (Negative) Urine Nitrite (Negative) Urine Bilirubin (Negative) Urine Urobilinogen (<2.0) mg/dL Ur Leukocyte Esterase (Negative) Urine RBC (0-5) /hpf Urine WBC (0-5) /hpf Urine WBC Clumps (None) /hpf Ur Squamous Epith Cells (0-4) /hpf Urine Bacteria (None) /hpf Disposition Clinical Impression: Anemia, Change in mental status, UTI (urinary tract infection), Weakness generalized, Leukocytosis, Renal insufficiency Disposition: ADMITTED IP TO THIS HOSP Condition: Fair Is patient prescribed a controlled substance at discharge?: No Referrals: Shadia Cotton MD [Primary Care Provider] - 1-2 days Time of Disposition: 16:03 Decision Date: 09/04/17 Decision Time: 16:03
[2017-09-04] MEDS ORDERED: ACETAMINOPHEN TAB 325 MG TAB PO PRN (16:07)
[2017-09-04] MEDS ORDERED: NALOXONE 0.4 MG/ML 1 ML VIAL IV PRN (16:07)
[2017-09-04] MEDS ORDERED: ONDANSETRON 4 MG/2 ML VIAL IVP PRN (16:07)
[2017-09-04] MEDS ORDERED: HYDROcodone/APAP 5-325MG 1 EACH TAB PO PRN (16:07)
[2017-09-04] MEDS ORDERED: IPRATROPIUM-ALBUTEROL 3 ML NEB INHALATION STA (16:51)
[2017-09-04] MEDS: IPRATROPIUM-ALBUTEROL 3 ML NEB INHALATION SCH (20:34)
--- NOTE | 2017-09-04 22:00 | HP ---
HISTORY AND PHYSICAL CHIEF COMPLAINTS: Change in mental status and some shakiness. HISTORY OF PRESENT ILLNESS: This 86-year-old woman with a past medical history of multiple medical problems including COPD, history of hypertension, myocardial infarction, DJD, history of respiratory distress, recurrent UTIs, history of cardiomyopathy, being followed by Dr. Cotton in the outpatient setting was recently evaluated by Dr. Cotton. The lungs were doing fine and the patient was started on Megace. Secondary to that, the family noted some change in mental status and the patient taken to [facility] and admitted for further evaluation and treatment. The patient has features of UTI at this time. Otherwise, hemoglobin was also found to be 6.9, baseline was 8. The patient is being transfused and patient admitted for further evaluation and treatment. There is no history of fever, rigors. No history of headache, loss of consciousness, seizures at this time. PAST MEDICAL HISTORY: History of COPD, hypertension, myocardial infarction, DJD, history of fragile skin, history of malnutrition. MEDICATIONS: 1. Megace 400 mg p.o. daily. 2. Lasix 20 mg p.o. daily. 3. Aldactone 25 mg p.o. daily. 4. DuoNeb q.i.d. and p.r.n. 5. Prednisone 5 mg p.o. daily. 6. Plavix 75 mg p.o. daily. 7. PreserVision 1 capsule b.i.d. 8. [place]-3 fatty acids 1 p.o. daily. 9. Magnesium 200 mg b.i.d. 10.Claritin 10 mg p.o. daily. 11.Vitamin B12 1000 mcg p.o. daily. 12.Aspirin 81 mg p.o. daily. 13.Vitamin D 3000 daily. 14.Calcium 1000 mg p.o. daily. 15.Lipitor 40 mg p.o. daily. 16.Zoloft 25 mg p.o. daily. 17.Zantac 150 mg p.o. daily. 18.Toprol-XL 25 mg p.o. daily. ALLERGIES: Are TAPE. FAMILY HISTORY: History of myocardial infarction, prostate disorder. SOCIAL HISTORY: Previous history of smoking. Occasional alcohol intake. REVIEW OF SYSTEMS: ENT: No diminished hearing, diminished vision. CARDIOVASCULAR: As mentioned earlier. RESPIRATORY: As mentioned earlier. GI: No nausea or vomiting. : No dysuria. NERVOUS: No numbness or weakness. ALLERGY/IMMUNOLOGY: No asthma or hay fever. MUSCULOSKELETAL: As mentioned earlier. HEMATOLOGY/ONCOLOGY: No history of anemia. ENDOCRINE: No hypothyroidism. CONSTITUTIONAL: As mentioned earlier. DERMATOLOGY: Negative. RHEUMATOLOGY: Negative. PSYCHIATRY: As mentioned earlier. PHYSICAL EXAMINATION: Patient is alert, oriented x2. Pulse 91, blood pressure 130/61, respirations 16, temperature 98.2, pulse ox 100% on 3L. HEENT: Conjunctivae normal. Oral mucosa moist. NECK: No jugular venous distention. No carotid bruits. No lymph node enlargement. CARDIOVASCULAR: S1, S2 muffled. RESPIRATORY: Breath sounds diminished in the bases. A few scattered rhonchi and crackles. ABDOMEN: Soft, nontender. No mass palpable. LEGS: No edema. No swelling. NERVOUS SYSTEM: Higher functions as mentioned earlier. Moves all 4 limbs. Mild diffuse weakness. LYMPHATIC: No lymphadenopathy in neck or axillae. SKIN: No ulcer, rash or bleeding. JOINTS: No active deformity. LABS: WBC 14, hemoglobin 6.9. UA noted. ASSESSMENT: 1. Urinary tract infection with sepsis, possibly present on admission. 2. Change in mental status, acute metabolic encephalopathy. 3. Severe protein-calorie malnutrition with a BMI 14.9. 4. Anemia, multifactorial, exact etiology unknown. Rule out possible nutrition. Rule out gastrointestinal bleed. 5. Increased creatinine with chronic kidney disease. 6. Chronic obstructive pulmonary disease. 7. Hypertension. 8. History of myocardial infarction. 9. History of recurrent urinary tract infections. 10.History of takotsubo cardiomyopathy. 11.Chronic hypoxic respiratory failure on home O2 2L nasal cannula. RECOMMENDATIONS AND DISCUSSION: In this 86-year-old woman who presented with multiple complex medical issues, will monitor the patient closely, continue the current medical management and symptomatic treatment. Otherwise at this time, I recommend broad-spectrum IV antibiotics. Obtain cultures. I would recommend closely follow with Dr. Cotton and Dr. Teran. Otherwise, guarded prognosis because of multiple complex medical issues. Further recommendations to follow. A copy of this dictation will be forwarded to Dr. Cotton, who is the primary physician. Exact etiology of the change in mental status could be multifactorial at this time; however, we will treat the UTI empirically, follow the patient during the hospitalization. MMODL / IJN: [id number] /
[2017-09-05 07:29] LABS: Basophils % (A) 0 %; Eosinophils # (A) 0.2 k/uL (0-0.7); Eosinophils % (A) 3 %; HCT 25.7 % (34.0-46.0); HGB 7.3 gm/dL (11.4-16.0); Hypochromasia Marked; Lymphocytes # (A) 1.7 k/uL (1.0-4.8); Lymphocytes % (A) 18 %; MCH 21.9 pg (25.0-35.0); MCHC 28.3 g/dL (31.0-37.0); MCV 77.4 fL (80.0-100.0); Mean Platelet Volume 6.3; Microcytosis Slight; Monocytes # (A) 0.7 k/uL (0-1.0); Monocytes % (A) 8 %; Neutrophils # (A) 6.3 k/uL (1.3-7.7); Neutrophils % (A) 67 %; Platelet Count 448 k/uL (150-450); Poikilocytosis Marked; RBC 3.32 m/uL (3.80-5.40); RDW 15.8 % (11.5-15.5); WBC 9.4 k/uL (3.8-10.6)
[2017-09-05 07:46] LABS: Calcium 8.8 mg/dL (8.4-10.2); Potassium 4.5 mmol/L (3.5-5.1)
[2017-09-05] MEDS: IPRATROPIUM-ALBUTEROL 3 ML NEB INHALATION SCH ×4 (08:40→20:09)
[2017-09-05] MEDS ORDERED: FAMOTIDINE 20 MG TAB PO SCH (09:00)
[2017-09-05] MEDS ORDERED: PANTOPRAZOLE 40 MG/10 ML VIAL IV SCH (09:00)
[2017-09-05] MEDS ORDERED: NON-FORMULARY DRUG (Omega-3 Fatty Acids/Fish Oil [Fish Oil 1,000 Mg Softgel] 1 CAP) PO SCH (09:00)
[2017-09-05 09:51] VITALS: BMI 14.9
[2017-09-05] MEDS: CLOPIDOGREL 75 MG TAB PO SCH (10:08)
[2017-09-05] MEDS: CHOLECALCIFEROL 1,000 UNIT TAB PO SCH (10:08)
[2017-09-05] MEDS: ATORVASTATIN 40 MG TAB PO SCH (10:08)
[2017-09-05] MEDS: ASPIRIN 81 MG PO SCH (10:08)
[2017-09-05] MEDS: CALCIUM CARB-VIT D 500MG-200UN 1 EACH TAB PO SCH (10:08)
[2017-09-05] MEDS: CYANOCOBALAMIN 500 MCG TAB PO SCH (10:09)
[2017-09-05] MEDS: SERTRALINE 25 MG TAB PO SCH (10:09)
[2017-09-05] MEDS: predniSONE 5 MG TAB PO SCH (10:09)
[2017-09-05] MEDS: SPIRONOLACTONE 25 MG TAB PO SCH (10:09)
[2017-09-05] MEDS: FUROSEMIDE 20 MG TAB PO SCH (10:09)
[2017-09-05] MEDS: MAGNESIUM OXIDE 400 MG TAB PO SCH (10:10)
[2017-09-05] MEDS: LORATADINE 10 MG TAB PO SCH (10:10)
[2017-09-05] MEDS: VIT A,C & E-LUTEIN-MINERALS 1 EACH TAB PO SCH (10:11)
[2017-09-05] MEDS: ENOXAPARIN 40 MG/0.4 ML SYRINGE SQ SCH (10:14)
[2017-09-05] MEDS: METOPROLOL SUCCINATE (ER) 25 MG TAB.ER.24H PO SCH (10:38)
--- NOTE | 2017-09-05 11:15 | CDI ---
Last Revision, April 2017 Documentation Clarification Form Date: 09/05/2017 11:11:00 AM From: Marilee FentonZeeHUDSON thomson, CCDS Admit Date: 09/04/2017 4:07:00 PM Patient Name: Allison Mcgowan Visit Number: [id number] Discharge Date: ATTENTION: The Clinical Documentation Specialists (CDI) and [facility] Coding Staff appreciate your assistance in clarifying documentation. Please respond to the clarification below the line at the bottom and electronically sign. The CDI & [facility] Coding staff will review the response and follow-up if needed. Please note: Queries are made part of the Legal Health Record. If you have any questions, please contact the author of this message via ITS. Dr. Nyla Tapia: 86 yo female, presented with altered mental status. Diagnosed with anemia, r/o nutritional, severe protein calorie malnutrition with BMI <15. Per the H/P: "Increased creatinine with chronic kidney disease". History/Risk Factors: Takotsubo syndrome cardiomyopathy on Home O2, COPD, Hypertension & hx of IA. Clinical Indicators: LABS: Hgb 6.9, BUN 31 - 26; Creatinine 1.16 - 1.08; GFR 43 - 46. Patients Baseline: BUN/CR/GFR: Unknown or not documented. Treatment: 1 unit PRBCs, IV fl rate 100, IV fluid bolus, IV Rocephin, Albuterol INH, O2 3Lnc. Patients medications include: Megace, Lasix, Aldactone, Plavix, Lipitor, Zoloft , Zantac, Troprol Nephrology has not been consulted. In order to capture the severity of condition, please clarify if the condition signifies: CKD Stage 1 (GFR > 90) CKD Stage 2 (GFR 60-89) CKD Stage 3 (GFR 30-59) CKD Stage 4 (GFR 15-29) CKD Stage 5 (GFR <15) Other, please specify Unable to determine Please continue to document in your progress notes and discharge summary in order to capture severity of illness and risk of mortality. Include clinical findings that support your diagnosis. CKD Stage 3 (GFR 30-59) [facility]
[2017-09-05] MEDS ORDERED: cefTRIAXone IN SWFI 1,000 MG/10 ML SYRINGE IVP SCH (12:00)
[2017-09-05] MEDS: THIAMINE 100 MG TAB PO SCH (13:13)
[2017-09-05] MEDS: FOLIC ACID 1 MG TAB PO SCH (13:13)
[2017-09-05] MEDS: MULTIVITAMINS, THERA 1 EACH TAB PO SCH (13:13)
--- NOTE | 2017-09-05 13:39 | P.CNPUL ---
History of Present Illness Consult date: 09/05/17 Chief complaint: Altered mental status, confusion History of present illness: 86-year-old female patient was brought in to the [facility] yesterday because of altered mental status, and increased confusion over the past few days. The patient is known to us and the patient has been followed up by Dr. Hillary titus on outpatient basis regarding her multiple medical problems and comorbidities. She is quite debilitated. She is known to have previous history of urine checked infection and urinary incontinence pH has been infected in the past with E. coli. She came in with what seems to be a similar presentation of a recurrent urine checked infection knowing that her urine was quite abnormal and there was increased leukocyte count and white cell clumps based on that the patient was started on IV fluids and IV Rocephin. This morning she is much more alert and oriented and she is following commands and answering questions appropriately. She seems to be quite fatigued and tired. She has history of recurrent falls however she denies falling prior to this current admission. No recent head trauma. No chest pain. No cough or sputum production. No worsening in her shortness of breath. No evidence of any GI bleeding. The patient has no open wounds or sores. No other new complaints otherwise for now. She was found to have a hemoglobin of 6.9 and subsequent hemoglobin came back at 7.3. The patient is a chronic anemia. White cell count this morning is at 9.4. Renal function test is within normal limits. Review of Systems Constitutional: Reports fatigue, Reports lethargy, Reports poor appetite, Reports weakness Eyes: denies blurred vision, denies bulging eye, denies decreased vision Ears: deny: decreased hearing, ear discharge, earache Ears, nose, mouth and throat: Denies headache, Denies sore throat Cardiovascular: Reports decreased exercise tolerance, Reports dyspnea on exertion, Reports shortness of breath Respiratory: Reports dyspnea Genitourinary: Reports as per HPI, Reports urgency, Reports urinary frequency Musculoskeletal: Denies myalgias Musculoskeletal: absent: ankle pain, ankle stiffness, ankle swelling Integumentary: Denies pruritus, Denies rash Neurological: Reports convulsions, Reports weakness Psychiatric: Denies anxiety, Denies depression Endocrine: Reports fatigue Past Medical History Past Medical History: COPD, Hypertension, Myocardial Infarction ([place]), Musculoskeletal Disorder, Osteoarthritis (OA), Respiratory Disorder Additional Past Medical History / Comment(s): COPD, hypertension, coronary artery disease with previous history of myocardial infarction and the patient has an 80-90% stenosis of the proximal diagonal branch based on the catheterization from April 2016, degenerative arthritis, previous history of Takotsubo syndrome with an underlying cardiomyopathy and an ejection fraction of around 30%, chronic hypoxic respiratory failure maintained on oxygen at 3 L/ m nasal cannula, urinary incontinence, frequent urine checked infection, skin cancer, history of falls, history of weight loss, generalized weakness and poor coordination and the patient is able to walk with the help of a assisting device such as a walker, history of right shoulder hairline fracture, history of right hip hairline fracture, history of skin tears and bruising possibly related to falls, remote history of an ankle wound that has healed through the wound center, chronic anemia, Last Myocardial Infarction Date:: 04/16/16 History of Any Multi-Drug Resistant Organisms: None Reported Past Surgical History: Heart Catheterization, Hysterectomy, Orthopedic Surgery Additional Past Surgical History / Comment(s): L rotator cuff shoulder surgery, colonoscopy, skin cancer removals, colonoscopy-normal, debridements R leg wounds , L cataract removal with lens implants. Past Anesthesia/Blood Transfusion Reactions: Previous Problems w/ Anesthesia Additional Past Anesthesia/Blood Transfusion Reaction / Comment(s): "cannot have general anesthesia r/t heart problems" per daughter in past medical hx Smoking Status: Former smoker - Past Family History Mother Family Medical History: Coronary Artery Disease (CAD), Diabetes Mellitus Additional Family Medical History / Comment(s): Mother at age 66 of heart problem. Father Family Medical History: Myocardial Infarction ([place]), Prostate Disorder Additional Family Medical History / Comment(s): Father at age 86 yrs. Medications and Allergies Home Medications Medication Instructions Recorded Confirmed Type Aspirin 81 mg PO DAILY 30 Days chew 04/22/16 09/04/17 Rx Clopidogrel [Plavix] 75 mg PO DAILY 30 Days tab 04/22/16 09/04/17 Rx Atorvastatin [Lipitor] 40 mg PO DAILY 06/19/16 09/04/17 History Loratadine [Claritin] 10 mg PO DAILY 06/19/16 09/04/17 History Sertraline HCl [Zoloft] 25 mg PO DAILY 06/19/16 09/04/17 History Metoprolol Succinate [Toprol XL] 25 mg PO DAILY #30 tab 06/20/16 09/04/17 Rx Furosemide [Lasix] 20 mg PO DAILY 05/07/17 09/04/17 History predniSONE 5 mg PO DAILY 05/07/17 09/04/17 History Calcium 1,000 mg PO DAILY 09/04/17 09/04/17 History Cholecalciferol [Vitamin D3] 1,000 unit PO DAILY 09/04/17 09/04/17 History Cyanocobalamin (Vitamin B-12) 1,000 mcg PO DAILY 09/04/17 09/04/17 History [Vitamin B-12] Ipratropium-Albuterol Nebulize 3 ml INHALATION RT-QID 09/04/17 09/04/17 History [Duoneb 0.5 mg-3 mg/3 ml Soln] Magnesium 200 mg PO DAILY 09/04/17 09/04/17 History Megestrol [Megace] 400 mg PO DAILY 09/04/17 09/04/17 History [place]-3 Fatty Acids/Fish Oil [Fish 1 cap PO DAILY 09/04/17 09/04/17 History Oil 1,000 mg Softgel] Ranitidine HCl [Zantac] 150 mg PO DAILY 09/04/17 09/04/17 History Spironolactone [Aldactone] 25 mg PO DAILY 09/04/17 09/04/17 History Vit C/E/Zn/Coppr/Lutein/Zeaxan 1 cap PO DAILY 09/04/17 09/04/17 History [Preservision Areds 2 Softgel] Allergies Allergy/AdvReac Type Severity Reaction Status Date / Time TAPE AdvReac Skin tears Uncoded 09/04/17 16:20 Physical Exam Vitals: Vital Signs Temp Pulse Pulse Resp BP BP Pulse Ox 09/05/17 12:28 84 09/05/17 12:20 78 09/05/17 08:59 80 09/05/17 08:53 98.2 F 71 20 144/66 100 09/05/17 08:48 76 09/05/17 08:00 71 20 09/05/17 02:30 98.9 F 90 16 124/78 09/05/17 00:09 100.0 F H 92 17 133/65 100 09/04/17 23:40 100.3 F H 66 17 126/60 100 09/04/17 23:30 99.3 F 70 17 125/70 100 04/18/18 23:22 62 17 09/04/17 23:17 68 17 107/49 100 09/04/17 23:11 99.0 F 92 17 104/44 100 09/04/17 23:01 98.2 F 95 17 130/99 09/04/17 21:09 100.5 F H 100 24 107/54 100 09/04/17 20:44 72 09/04/17 20:35 74 09/04/17 18:18 98.2 F 91 16 138/61 100 09/04/17 17:12 72 09/04/17 17:10 97.4 F L 87 18 139/61 99 09/04/17 17:02 72 09/04/17 16:18 98.3 F 91 18 143/60 100 09/04/17 14:05 20 09/04/17 13:36 98.6 F 93 24 129/58 100 Intake and Output 09/04/17 09/05/17 09/05/17 22:59 06:59 14:59 Intake Total 310 440 Balance 310 440 Intake: Oral 440 Blood Product 310 Rc As-1 Unit 310 [id number] Other: Voiding Method Toilet Bedside Commode # Voids 1 1 # Bowel Movements 1 Weight 39.463 kg GENERAL EXAM: Alert, active, comfortable in no apparent distress. HEAD: Normocephalic. EYES: Normal reaction of pupils, equal size. NOSE: Clear with pink turbinates. THROAT: No erythema or exudates. NECK: No masses, no JVD. CHEST: No chest wall deformity. LUNGS: Equal air entry with faint end expiratory wheeze bilaterally. Diminished throughout. CVS: S1 and S2 normal with no audible murmurs, regular rhythm. ABDOMEN: No hepatosplenomegaly, normal bowel sounds, no guarding or rigidity. SKIN: No rashes. There is significant ecchymosis and thin skin from chronic steroid use. CENTRAL NERVOUS SYSTEM: No focal deficits, tone is normal in all 4 extremities. Gait is unsteady and the patient overall is weak in all 4 extremities Extremities: There is no significant peripheral edema. No clubbing, no cyanosis. Peripheral pulses are intact. Areas of skin bruising without any obvious wounds or tears. Results - Laboratory Findings CBC and BMP: 09/05/17 06:51 09/05/17 06:51 PT/INR, D-dimer PT 10.0 sec (9.0-12.0) 09/04/17 14:46 INR 1.0 (<1.2) 09/04/17 14:46 Abnormal lab findings: Abnormal Labs 09/04/17 09/04/17 09/04/17 14:30 14:46 14:46 WBC 14.0 H RBC 3.31 L Hgb 6.9 L* Hct 24.8 L MCV 74.8 L MCH 20.9 L MCHC 27.9 L RDW 15.8 H Plt Count 588 H Neutrophils # 10.6 H APTT Sodium Chloride 108 H BUN 31 H Creatinine 1.16 H Glucose Total Protein 5.9 L Albumin 3.2 L Urine Appearance Cloudy H Urine Protein Trace H Urine Blood Trace H Ur Leukocyte Esterase Large H Urine WBC >182 H Urine WBC Clumps Many H Urine Bacteria Few H Crossmatch 09/04/17 09/04/17 09/05/17 14:46 14:46 06:51 WBC RBC Hgb Hct MCV MCH MCHC RDW Plt Count Neutrophils # APTT 19.2 L Sodium 146 H Chloride 112 H BUN 26 H Creatinine 1.08 H Glucose 72 L Total Protein Albumin Urine Appearance Urine Protein Urine Blood Ur Leukocyte Esterase Urine WBC Urine WBC Clumps Urine Bacteria Crossmatch See Detail 09/05/17 06:51 WBC RBC 3.32 L Hgb 7.3 L Hct 25.7 L MCV 77.4 L MCH 21.9 L MCHC 28.3 L RDW 15.8 H Plt Count Neutrophils # APTT Sodium Chloride BUN Creatinine Glucose Total Protein Albumin Urine Appearance Urine Protein Urine Blood Ur Leukocyte Esterase Urine WBC Urine WBC Clumps Urine Bacteria Crossmatch - Diagnostic Findings Chest x-ray: image reviewed Assessment and Plan Plan: 1 altered mental status secondary to underlying urine checked infection. Possibly a gram-negative urine checked infection and patient improved with fluids and IV Rocephin. 2 chronic anemia with interval drop in hemoglobin down to 6.9 and currently is up to 7.3 posttransfusion 1 unit of packed RBC. The patient has received blood transfusion in the past specifically in June 2016. 3 COPD with chronic hypoxic respiratory failure 4 coronary artery disease with previous cardiac catheterization from April 2016 indicating a 80-90% lesion in the obtuse marginal branch 5 cardiomyopathy with an ejection fraction of 25-30% 6 history of takatsubo syndrome 7 frequent urine urinary infections with gram-negative bacteria and history of urinary incontinence 8 skin cancer 9 history of frequent falls 10 hypertension 11 hyperlipidemia 12 very poor baseline performance and functional status along with a component of protein calorie malnutrition and the patient's BMI is 14.9 Plan Mental status is improved. The patient will be kept on IV fluids to be tapered off knowing that the patient has an underlying CHF. Would suggest continued IV fluids for today in combination with IV Rocephin 1 g per 24 hours pending blood cultures and urine cultures. I'll patient medication will be ordered resume. No need for stress dose hydrocortisone as the patient has been chronically maintained on 5 mg of prednisone and she does not show any signs of adrenal insufficiency monitor hemoglobin. Would also need an anemia workup. We'll leave this up to medicine. We'll continue to follow.
[2017-09-05 18:47] LABS: Iron Saturation 4.26 (12.00-45.00)
[2017-09-05] MEDS: CEFUROXIME 250 MG TAB PO SCH (21:14)
[2017-09-06] MEDS: CEFUROXIME 250 MG TAB PO SCH (06:09)
[2017-09-06] MEDS: IPRATROPIUM-ALBUTEROL 3 ML NEB INHALATION SCH ×2 (07:05→10:50)
[2017-09-06] MEDS ORDERED: PANTOPRAZOLE 40 MG TABLET PO SCH (07:30)
[2017-09-06 08:01] VITALS: BP 150/81; RESP 16; TEMP 97.9
[2017-09-06 08:06] LABS: Anisocytosis Slight; Basophils % (A) 0 %; Eosinophils # (A) 0.2 k/uL (0-0.7); Eosinophils % (A) 2 %; HCT 27.7 % (34.0-46.0); HGB 7.9 gm/dL (11.4-16.0); Hypochromasia Marked; Lymphocytes # (A) 1.9 k/uL (1.0-4.8); Lymphocytes % (A) 20 %; MCH 22.4 pg (25.0-35.0); MCHC 28.5 g/dL (31.0-37.0); MCV 78.8 fL (80.0-100.0); Mean Platelet Volume 6.6; Microcytosis Slight; Monocytes # (A) 0.7 k/uL (0-1.0); Monocytes % (A) 7 %; Neutrophils # (A) 6.5 k/uL (1.3-7.7); Neutrophils % (A) 67 %; Platelet Count 465 k/uL (150-450); Poikilocytosis Moderate; RBC 3.51 m/uL (3.80-5.40); RDW 16.2 % (11.5-15.5); WBC 9.7 k/uL (3.8-10.6)
[2017-09-06 08:31] LABS: Calcium 8.7 mg/dL (8.4-10.2); Potassium 4.6 mmol/L (3.5-5.1)
[2017-09-06] MEDS: ATORVASTATIN 40 MG TAB PO SCH (08:44)
[2017-09-06] MEDS: ASPIRIN 81 MG PO SCH (08:44)
[2017-09-06] MEDS: FUROSEMIDE 20 MG TAB PO SCH (08:45)
[2017-09-06] MEDS: ENOXAPARIN 40 MG/0.4 ML SYRINGE SQ SCH (08:45)
[2017-09-06] MEDS: VIT A,C & E-LUTEIN-MINERALS 1 EACH TAB PO SCH (08:45)
[2017-09-06] MEDS: CYANOCOBALAMIN 500 MCG TAB PO SCH (08:45)
[2017-09-06] MEDS: CALCIUM CARB-VIT D 500MG-200UN 1 EACH TAB PO SCH (08:46)
[2017-09-06] MEDS: LORATADINE 10 MG TAB PO SCH (08:46)
[2017-09-06] MEDS: SPIRONOLACTONE 25 MG TAB PO SCH (08:46)
[2017-09-06] MEDS: METOPROLOL SUCCINATE (ER) 25 MG TAB.ER.24H PO SCH (08:46)
[2017-09-06] MEDS: MAGNESIUM OXIDE 400 MG TAB PO SCH (08:46)
[2017-09-06] MEDS: CLOPIDOGREL 75 MG TAB PO SCH (08:46)
[2017-09-06] MEDS: predniSONE 5 MG TAB PO SCH (08:46)
[2017-09-06] MEDS: SERTRALINE 25 MG TAB PO SCH (08:46)
[2017-09-06] MEDS: CHOLECALCIFEROL 1,000 UNIT TAB PO SCH (08:47)
[2017-09-06] MEDS ORDERED: AMOXIC-POT CLAV 875-125MG 1 EACH TAB PO SCH (09:15)
[2017-09-06] MEDS: THIAMINE 100 MG TAB PO SCH (11:14)
[2017-09-06] MEDS: MULTIVITAMINS, THERA 1 EACH TAB PO SCH (11:14)
[2017-09-06] MEDS: FOLIC ACID 1 MG TAB PO SCH (11:14)
[2017-09-06 11:56] VITALS: PULSE 88
--- NOTE | 2017-09-06 14:18 | P.PN ---
Subjective Progress Note Date: 09/06/17 86-year-old female patient was brought in to the [facility] yesterday because of altered mental status, and increased confusion over the past few days. The patient is known to us and the patient has been followed up by Dr. Thornton are on outpatient basis regarding her multiple medical problems and comorbidities. She is quite debilitated. She is known to have previous history of urine checked infection and urinary incontinence pH has been infected in the past with E. coli. She came in with what seems to be a similar presentation of a recurrent urine checked infection knowing that her urine was quite abnormal and there was increased leukocyte count and white cell clumps based on that the patient was started on IV fluids and IV Rocephin. This morning she is much more alert and oriented and she is following commands and answering questions appropriately. She seems to be quite fatigued and tired. She has history of recurrent falls however she denies falling prior to this current admission. No recent head trauma. No chest pain. No cough or sputum production. No worsening in her shortness of breath. No evidence of any GI bleeding. The patient has no open wounds or sores. No other new complaints otherwise for now. She was found to have a hemoglobin of 6.9 and subsequent hemoglobin came back at 7.3. The patient is a chronic anemia. White cell count this morning is at 9.4. Renal function test is within normal limits. On 09/06/2017, the patient is afebrile hemodynamically stable. The patient is following commands and answering questions appropriately. The patient has no specific complaints. Urine analysis was abnormal and the patient had a urine culture that showed enterococcus group D. The patient was placed on oral Augmentin. No significant leukocytosis and the white cell count is improved is down to 9.7. The patient's hemoglobin stable at 7.9. Renal function is also stable. She is awake and alert and she is following commands and answering questions. She is tolerating her diet. No other significant events overnight. She is on 2 L of oxygen nasal cannula with a saturation of 99%. Objective - Vital Signs Vital signs: Vital Signs Temp 97.9 F 09/06/17 07:00 Pulse 88 09/06/17 10:58 Resp 16 09/06/17 08:00 BP 150/81 09/06/17 07:00 Pulse Ox 99 09/06/17 07:07 Intake & Output 09/05/17 09/06/17 09/06/17 18:59 06:59 18:59 Intake Total 1200 250 540 Balance 1200 250 540 Weight 39.463 kg 39.463 kg 39.463 kg Intake: Intake, IV Titration 400 Amount Sodium Chloride 0.9% 1, 400 000 ml @ 100 mls/hr IV . Q10H ONE Rx#:[id number] Oral 800 250 540 Other: Voiding Method Bedside Commode Bedside Commode Bedside Commode # Voids 1 2 2 # Bowel Movements 1 - Exam GENERAL EXAM: Alert, active, comfortable in no apparent distress. HEAD: Normocephalic. EYES: Normal reaction of pupils, equal size. NOSE: Clear with pink turbinates. THROAT: No erythema or exudates. NECK: No masses, no JVD. CHEST: No chest wall deformity. LUNGS: Equal air entry with faint end expiratory wheeze bilaterally. Diminished throughout. CVS: S1 and S2 normal with no audible murmurs, regular rhythm. ABDOMEN: No hepatosplenomegaly, normal bowel sounds, no guarding or rigidity. SKIN: No rashes. There is significant ecchymosis and thin skin from chronic steroid use. CENTRAL NERVOUS SYSTEM: No focal deficits, tone is normal in all 4 extremities. Gait is unsteady and the patient overall is weak in all 4 extremities Extremities: There is no significant peripheral edema. No clubbing, no cyanosis. Peripheral pulses are intact. Areas of skin bruising without any obvious wounds or tears. - Labs CBC & Chem 7: 09/06/17 07:35 09/06/17 07:35 Labs: Abnormal Lab Results - Last 24 Hours (Table) 09/05/17 09/06/17 09/06/17 Range/Units 06:51 07:35 07:35 RBC 3.51 L (3.80-5.40) m/uL Hgb 7.9 L (11.4-16.0) gm/dL Hct 27.7 L (34.0-46.0) % MCV 78.8 L (80.0-100.0) fL MCH 22.4 L (25.0-35.0) pg MCHC 28.5 L (31.0-37.0) g/dL RDW 16.2 H (11.5-15.5) % Plt Count 465 H (150-450) k/uL Chloride 110 H (98-107) mmol/L BUN 25 H (7-17) mg/dL Glucose 73 L (74-99) mg/dL Iron 12 L (50-170) ug/dL Iron Saturation 4.26 L (12.00-45.00) Microbiology - Last 24 Hours (Table) 09/04/17 14:30 Urine Culture - Preliminary Urine,Voided Group D Enterococcus Assessment and Plan Plan: 1 altered mental status secondary to underlying urine tract infection. The patient has enterococcus group D. The patient is currently on Augmentin. Mental status is normalized. No signs of septicemia for now. Dynamically stable. 2 chronic anemia with interval drop in hemoglobin down to 6.9 and currently is up to 7.3 posttransfusion 1 unit of packed RBC. The patient has received blood transfusion in the past specifically in June 2016. The hemoglobin is stable at 7.9. 3 COPD with chronic hypoxic respiratory failure 4 coronary artery disease with previous cardiac catheterization from April 2016 indicating a 80-90% lesion in the obtuse marginal branch 5 cardiomyopathy with an ejection fraction of 25-30% 6 history of takatsubo syndrome 7 frequent urine urinary infections with gram-negative bacteria and history of urinary incontinence 8 skin cancer 9 history of frequent falls 10 hypertension 11 hyperlipidemia 12 very poor baseline performance and functional status along with a component of protein calorie malnutrition and the patient's BMI is 14.9 Plan Continue Augmentin. Discharge planning is in progress. Overall [facility]ace pulmonary status is stable. Mental status normalized. Hemoglobin is stable. We'll sign off the case.
--- NOTE | 2017-09-06 20:53 | DS ---
DISCHARGE SUMMARY DATE OF SERVICE: 09/06/2017. FINAL DIAGNOSES: 1. Urinary tract infection with sepsis present on admission. 2. Change in mental status acute metabolic encephalopathy. 3. Severe protein calorie malnutrition, BMI 14.9. 4. Anemia multifactorial. 5. Increased creatinine with chronic kidney disease. 6. Chronic obstructive pulmonary disease. DISCHARGE DISPOSITION: Patient is being discharged in stable condition with guarded prognosis. HISTORY OF PRESENT ILLNESS: This 86-year-old woman with a past medical history of multiple medical problems was admitted with change in mental status and UTI. The patient was treated with antibiotics, improved significantly. On exam, vital signs are stable. Cardiovascular: S1, S2 muffled. Abdomen soft. Nervous system: No focal deficits. DISCHARGE MEDICATIONS AND DIET: 1. Diet is cardiac diet. 2. Activity limited until follow up. 3. Followup with Dr. Cotton as advised. MEDS: Medications are as follows: 1. Tylenol 650 q.6h p.r.n. 2. Augmentin 875 mg 1 p.o. b.i.d. for 1 week. 3. Aspirin 81 mg p.o. daily. 4. Lipitor 40 mg daily. 5. Calcium 1000 mg b.i.d. 6. Vitamin D 3000 daily. 7. Plavix 75 mg p.o. daily. 8. Vitamin B12 1000 mcg. 9. Lasix 20 mg. 10.DuoNeb q.i.d. and p.r.n. 11.Claritin 10 mg daily. 12.Magnesium 200 mg b.i.d. 13.Megace 400 mg p.o. daily. 14.Toprol-XL 25 mg p.o. daily. 15.[place]-3 fatty acids 1 p.o. daily. 16.Prednisone 5 mg p.o. daily. 17.Zantac 150 mg. 18.Zoloft 25 mg daily. 19.Aldactone 25 mg p.o. daily. 20.Vitamin C, E, copper lutein 1 capsule p.o. daily. Once again, the patient being discharged in stable condition with guarded prognosis. MMODL / IJN: [id number] /
--- NOTE | 2017-09-06 21:07 | P.PN ---
Subjective Progress Note Date: 09/05/17 Progress note being dictated for Dr. Tapia Interval history this is a 86-year-old female admitted with acute metabolic encephalopathy, acute UTI and multiple other medical issues. Antibiotics converted to oral Ceftin. More alert, Pleasantly confused. Hemoglobin 7.3, WBC 9.4. Renal function improving. Evaluated by pulmonary with recommendations noted. Denies chest pain, palpitations or increasing shortness of breath. Objective - Vital Signs Vital signs: Vital Signs Temp 98.4 F 09/05/17 16:23 Pulse 90 09/05/17 17:09 Resp 18 09/05/17 16:23 BP 108/56 09/05/17 16:23 Pulse Ox 99 09/05/17 16:23 Intake & Output 09/04/17 09/05/17 09/05/17 18:59 06:59 18:59 Intake Total 310 1200 Balance 310 1200 Weight 39.463 kg 39.463 kg Intake: Intake, IV Titration 400 Amount Sodium Chloride 0.9% 1, 400 000 ml @ 100 mls/hr IV . Q10H ONE Rx#:[id number] Oral 800 Blood Product 310 Rc As-1 Unit 310 [id number] Other: Voiding Method Toilet Bedside Commode # Voids 1 1 # Bowel Movements 1 - Exam PHYSICAL EXAM: VITAL SIGNS: [As above] GENERAL: Sitting up at bedside, visiting with daughter, no acute distress HEENT: Conjunctivae normal. eyes normal. Oral mucosa moist NECK: No JVD. No thyroid enlargement. No LNs CARDIOVASCULAR: S1, S2 muffled. No murmur RESPIRATION: Breath sounds diminished in the bases. No rhonchi or crackles. Fine expiratory wheezing ABDOMEN: Soft, nontender . No guarding. no masses palpable.Bowel sounds heard. LEGS: No edema. no swelling PSYCHIATRY: Alert and oriented -3, mood and affect normal. NERVOUS SYSTEM: Cranial N 2-12 grossly normal. Moves all 4 limbs. Diffuse weakness No focal deficits. Skin: Multiple areas of ecchymosis, no ulcer no rash Lymphatic system. No LN neck axilla or groin. - Labs CBC & Chem 7: 09/06/17 07:35 09/06/17 07:35 Labs: Abnormal Lab Results - Last 24 Hours (Table) 09/04/17 09/05/17 09/05/17 Range/Units 14:46 06:51 06:51 RBC 3.32 L (3.80-5.40) m/uL Hgb 7.3 L (11.4-16.0) gm/dL Hct 25.7 L (34.0-46.0) % MCV 77.4 L (80.0-100.0) fL MCH 21.9 L (25.0-35.0) pg MCHC 28.3 L (31.0-37.0) g/dL RDW 15.8 H (11.5-15.5) % Sodium 146 H (137-145) mmol/L Chloride 112 H (98-107) mmol/L BUN 26 H (7-17) mg/dL Creatinine 1.08 H (0.52-1.04) mg/dL Glucose 72 L (74-99) mg/dL Crossmatch See Detail Microbiology - Last 24 Hours (Table) 09/04/17 14:30 Urine Culture - Preliminary Urine,Voided Assessment and Plan Assessment: Acute UTI-enterococcus with sepsis Change in mental status, acute metabolic encephalopathy secondary to the above Severe protein calorie malnutrition, BMI 14.9 Chronic anemia Acute on chronic renal failure COPD Plan: Continue on current medication regime ,monitoring and symptomatic treatment. Maintain antibiotics. Increase ambulation as tolerated. Discharge planning in progress for tomorrow. The impression and plan of care has been dictated as directed. : I performed a history and examination of this patient, discussed the same with the dictator. I agree with the dictator's note ,documented as a scribe. Any additional findings or plans will be noted.
== END 2017-09-06 15:15 | disposition home or self-care (01) | DRG 871 ==
LOC: EC 12:57 → 5MS5E 16:07
PROVIDERS: ADMIT Hospitalist; ATTEND Hospitalist
DX: A41.9 Sepsis, unspecified organism (principal); E43 Unspecified severe protein-calorie malnutrition; G93.41 Metabolic encephalopathy; I42.9 Cardiomyopathy, unspecified; J96.11 Chronic respiratory failure with hypoxia; N39.0 Urinary tract infection, site not specified; Z68.1 Body mass index [BMI] 19.9 or less, adult; D64.9 Anemia, unspecified; I25.10 Atherosclerotic heart disease of native coronary artery without angina pectoris; I25.2 Old myocardial infarction; J44.9 Chronic obstructive pulmonary disease, unspecified; N18.3 Chronic kidney disease, stage 3 (moderate); I12.9 Hypertensive chronic kidney disease with stage 1 through stage 4 chronic kidney disease, or unspecified chronic kidney disease; Z79.02 Long term (current) use of antithrombotics/antiplatelets; Z79.82 Long term (current) use of aspirin; Z79.899 Other long term (current) drug therapy; Z82.49 Family history of ischemic heart disease and other diseases of the circulatory system; Z83.3 Family history of diabetes mellitus; Z85.828 Personal history of other malignant neoplasm of skin; Z87.440 Personal history of urinary (tract) infections; Z87.891 Personal history of nicotine dependence; Z90.710 Acquired absence of both cervix and uterus; Z91.81 History of falling; Z96.1 Presence of intraocular lens; Z98.42 Cataract extraction status, left eye; Z99.81 Dependence on supplemental oxygen; Z79.52 Long term (current) use of systemic steroids; E78.5 Hyperlipidemia, unspecified; B95.2 Enterococcus as the cause of diseases classified elsewhere
CPT/HCPCS: 36415; 71046; 80048; 80053; 81001; 82140; 82550; 82553; 83540; 83550; 84484; 85025; 85610; 85730; 86850; 86900; 86901; 86920; 87077; 87086; 87186; 93005; 94640; 94760; 96361; 96374; 99285